=== PATIENT | female | born 1960 | race American Indian/Alaskan Native ===

== ENCOUNTER 2017-05-24 09:23 | Emergency (ER) | payer MEDICAID, OTHER ==
[2017-05-24 09:21] VITALS: BP 162/97
[2017-05-24 09:47] LABS: CHLORIDE,CL 106 mmol/L (101-111); SODIUM,NA 140 mmol/L (135-145)
--- NOTE | 2017-05-24 10:43 | CR ---
Clinical history: 57-year-old female chest pain Interpretation: Negative exam. Normal cardiac silhouette and mild ectasia dorsal aorta. No alveolar edema or dependent effusion. No lung mass, hilar lymphadenopathy or focal lobar pneumonia. No atelectasis/collapse. Aldo thorax unremarkable this AP film. No pneumothorax.
--- NOTE | 2017-05-24 10:55 | EDM.PDOC ---
ED HPI GENERAL MEDICAL PROBLEM - General Chief Complaint: Chest Pain Stated Complaint: CHEST PAIN Time Seen by Provider: 05/24/17 09:25 Source of Information: Reports: Patient History Limitations: Reports: No Limitations - History of Present Illness INITIAL COMMENTS - FREE TEXT/NARRATIVE: This 57 yo female patient was sent to the ED from the [facility] due to a 2 day history of chest pain. The patient has a history of previous cardiac stents, has been non-compliant with medications as well as non-compliant with follow-up post previous chest pain episode. The patient reports some increased shortness of breath with her chest pain. 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: Aspirin, Nitroglycerin Middle Chest Pain Score (Numeric/FACES): 2 - Related Data Allergies Allergy/AdvReac Type Severity Reaction Status Date / Time No Known Allergies Allergy Verified 05/24/17 09:27 Home Meds: Home Meds Aspirin [Halfprin] 81 mg PO DAILY 05/31/15 [History] Hydrochlorothiazide 12.5 mg PO DAILY 05/31/15 [History] Ibuprofen [Motrin] 800 mg PO Q12HR PRN 05/31/15 [History] Lisinopril 10 mg PO DAILY 05/31/15 [History] Metoprolol Tartrate [Lopressor] 05/31/15 [History] hydrOXYzine HCl [Atarax] 25 mg PO DAILY PRN 05/31/15 [History] traMADol [Ultram] 50 mg PO Q6H 05/31/15 [History] Albuterol [Proventil HFA] 6.7 gm INH Q6H PRN 05/24/17 [History] Hydrocodone/Acetaminophen [Hydrocodon-Acetaminophn 10-325] 1 tab PO BEDTIME [History] Oxymetazoline [Afrin Original 0.05% Nasal [place]] 15 ml AKILA Q12HR PRN 05/24/17 [ History] Past Medical History HEENT History: Reports: Impaired Vision, Other (See Below) Other HEENT History: wears contacts and has dentures Cardiovascular History: Reports: Angina, Hypertension, [place], Stents Respiratory History: Reports: Asthma, Bronchitis, Recurrent, SOB Gastrointestinal History: Reports: Cholelithiasis 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: Neurological History: Reports: Headaches, Chronic, Head Trauma, Migraines, Other (See Below) Other Neuro History: states fell and hit the back of her head last week and has been having more frequent headaches Psychiatric History: Reports: Anxiety, Depression Hematologic History: Reports: Blood Transfusion(s) - Infectious Disease History Infectious Disease History: Reports: Chicken Pox, Hepatitis B, Hepatitis C - Past Surgical History HEENT Surgical History: Reports: Visual Other HEENT Surgeries/Procedures: fx nose, repaired Cardiovascular Surgical History: Reports: Coronary Artery Stent GI Surgical History: Reports: Cholecystectomy Female Surgical History: Reports: Section Musculoskeletal Surgical History: Reports: Knee Replacement, Shoulder Surgery, Other (See Below) Other Musculoskeletal Surgeries/Procedures:: partial knee replacement on right knee, wears brace awaiting surgery again. right shoulder surgery and carpal tunnel surgery to right Social & Family History - Tobacco Use Smoking Status *Q: Former Smoker Used Tobacco, but Quit: Yes Month Tobacco Last Used: 1999 Second Hand Smoke Exposure: Yes - Caffeine Use Caffeine Use: Reports: None - Recreational Drug Use Recreational Drug Use: No ED ROS GENERAL - Review of Systems Review Of Systems: ROS reveals no pertinent complaints other than HPI. ED EXAM, GENERAL - Physical Exam Exam: See Below Exam Limited By: No Limitations General Appearance: Alert, WD/WN, Mild Distress Eye Exam: Bilateral Eye: EOMI, Normal Inspection, PERRL Ears: Normal External Exam, Normal Canal, Hearing Grossly Normal, Normal TMs Nose: Normal Inspection, Normal Mucosa, No Blood Throat/Mouth: Normal Inspection, Normal Lips, Normal Teeth, Normal Gums, Normal Oropharynx, Normal Voice, No Airway Compromise Head: Atraumatic, Normocephalic Neck: Normal Inspection, Supple, Non-Tender, Full Range of Motion Respiratory/Chest: No Respiratory Distress, Lungs Clear, Normal Breath Sounds, No Accessory Muscle Use, Chest Non-Tender Cardiovascular: Normal Peripheral Pulses, Regular Rate, Rhythm, No Edema, No Gallop, No JVD, No Murmur, No Rub GI/Abdominal: Normal Bowel Sounds, Soft, Non-Tender, No Organomegaly, No Distention, No Abnormal Bruit, No Mass (Female) Exam: Deferred Rectal (Female) Exam: Deferred Back Exam: Normal Inspection, Full Range of Motion, NT Extremities: Normal Inspection, Normal Range of Motion, Non-Tender, Normal Capillary Refill, No Pedal Edema Neurological: Alert, Oriented, CN II-XII Intact, Normal Cognition, Normal Gait, Normal Reflexes, No Motor/Sensory Deficits Psychiatric: Normal Affect, Normal Mood Skin Exam: Warm, Dry, Intact, Normal Color, No Rash Lymphatic: No Adenopathy Course - Vital Signs Last Recorded V/S: Last Vital Signs Temp 36.7 C 05/24/17 09:19 Pulse 82 05/24/17 09:19 Resp 20 05/24/17 09:19 BP 162/97 H 05/24/17 09:21 Pulse Ox 96 05/24/17 09:19 - Orders/Labs/Meds Orders: Active Orders 24 hr Category Date Time Status EKG Documentation Completion [RC] URGENT Care 05/24/17 09:14 Active DRUG SCREEN URINE BIORAD [URCHEM] Stat Lab 05/24/17 09:14 Uncollected UA W/MICROSCOPIC [URIN] Stat Lab 05/24/17 09:14 Uncollected Labs: Laboratory Tests 05/24/17 05/24/17 05/24/17 Range/Units 09:22 09:22 09:22 WBC 9.1 (5.0-10.0) 10^3/uL RBC 4.81 (4.2-5.4) 10^6/uL Hgb 13.2 (12.0-16.0) g/dL Hct 40.0 (37.0-47.0) % MCV 83.2 (80-100) fL MCH 27.4 (27.0-34.0) pg MCHC 33.0 (33.0-35.0) g/dL Plt Count 225 (150-450) 10^3/uL Neut % (Auto) 71.4 (42.2-75.2) % Lymph % (Auto) 18.6 L (20.5-50.1) % [place] % (Auto) 6.5 (2-8) % Eos % (Auto) 3.0 (1.0-3.0) % Baso % (Auto) 0.5 (0.0-1.0) % Sodium 140 (135-145) mmol/L Potassium 3.5 L (3.6-5.0) mmol/L Chloride 106 (101-111) mmol/L Carbon Dioxide 23.0 (21.0-31.0) mmol/L Anion Gap 14.5 BUN 13 (7-18) mg/dL Creatinine 0.7 (0.6-1.3) mg/dL Est Cr Clr Drug Dosing 68.44 mL/min Estimated GFR (MDRD) > 60 BUN/Creatinine Ratio 18.57 Glucose 108 H (74-105) mg/dL Calcium 9.5 (8.4-10.2) mg/dl Total Bilirubin 0.5 (0.2-1.0) mg/dL AST 26 (10-42) IU/L ALT 22 (10-60) IU/L Alkaline Phosphatase 107 (42-121) IU/L Troponin I < 0.02 (0.00-0.02) ng/ml B-Natriuretic Peptide 19 (0-100) pg/ml Total Protein 8.0 (6.7-8.2) g/dl Albumin 4.3 (3.2-5.5) g/dl Globulin 3.7 Albumin/Globulin Ratio 1.16 Departure - Departure Time of Disposition: 10:53 Disposition: Home, Self-Care 01 Condition: Fair Clinical Impression: Angina at rest Instructions: Angina Pectoris, [id number] Forms: ED Department Discharge Care Plan Goals: The patient was advised of the examination, lab, EKG and x-ray results during the visit. The patient was encouraged to take her medications as prescribed. The patient should follow-up with her primary care provider and her cloth calender for continued evaluation and further management. If the patient has any additional symptoms or concerns, the patient should either visit her primary care facility or return to the emergency department. - My Orders Last 24 Hours: My Active Orders 05/24/17 09:14 EKG Documentation Completion [RC] URGENT DRUG SCREEN URINE BIORAD [URCHEM] Stat UA W/MICROSCOPIC [URIN] Stat - Assessment/Plan Last 24 Hours: My Active Orders 05/24/17 09:14 EKG Documentation Completion [RC] URGENT DRUG SCREEN URINE BIORAD [URCHEM] Stat UA W/MICROSCOPIC [URIN] Stat
--- NOTE | 2017-05-29 12:53 | EKG ---
05/24/2017 - MARY JASSO - EKG done on a 57-year-old female, the one that is done at 9:15 a.m. showed sinus rhythm, heart rate of 87 beats per minute, right bundle branch block noted. [facility] /[id number]
== END 2017-05-24 11:05 | disposition home or self-care (01) ==
LOC: DL.ED 09:23
DX: I25.119 Atherosclerotic heart disease of native coronary artery with unspecified angina pectoris (principal); R06.02 Shortness of breath; I10 Essential (primary) hypertension; F41.8 Other specified anxiety disorders; Z91.14 Patient's other noncompliance with medication regimen; Z79.899 Other long term (current) drug therapy; Z91.19 Patient's noncompliance with other medical treatment and regimen; Z87.891 Personal history of nicotine dependence; Z95.5 Presence of coronary angioplasty implant and graft
CPT/HCPCS: 36415; 71010; 80053; 83880; 84484; 85025; 93005; 99285

== ENCOUNTER 2017-05-24 16:30 | Emergency (ER) | payer MEDICAID, OTHER ==
[2017-05-24 16:42] VITALS: BP 149/108
[2017-05-24 17:11] LABS: CHLORIDE,CL 105 mmol/L (101-111); SODIUM,NA 141 mmol/L (135-145)
[2017-05-24] MEDS ORDERED: LORazepam 0.5 MG Tab PO ONE (17:37)
--- NOTE | 2017-05-24 17:43 | EDM.PDOC ---
ED HPI GENERAL MEDICAL PROBLEM - General Chief Complaint: Chest Pain Stated Complaint: CHEST PAIN. SOB Time Seen by Provider: 05/24/17 17:15 Source of Information: Reports: Patient History Limitations: Reports: No Limitations - History of Present Illness INITIAL COMMENTS - FREE TEXT/NARRATIVE: This 57 yo female patient reports to the ED with chest pain and increased shortness of breath. The patient reports she was in an argument with her spouse prior to her symptoms starting today. The patient reports she was staying at her son's house last night and noticed some glass pipes and white substances in the house. The patient was seen in the ED for similar symptoms this morning and had a negative cardiac evaluation. The patient denies any drug or ETOH use. Onset: Today, Sudden Duration: Minutes:, Constant Location: Reports: Chest Quality: Reports: Ache, Sharp Severity: Moderate Improves with: Reports: Rest Worsens with: Reports: None Associated Symptoms: Reports: Chest Pain, Shortness of Breath Chest Pain Score (Numeric/FACES): 8 - Related Data Allergies Allergy/AdvReac Type Severity Reaction Status Date / Time No Known Allergies Allergy Verified 05/24/17 16:37 Home Meds: Home Meds Aspirin [Halfprin] 81 mg PO DAILY 05/31/15 [History] Hydrochlorothiazide 12.5 mg PO DAILY 05/31/15 [History] Ibuprofen [Motrin] 800 mg PO Q12HR PRN 05/31/15 [History] Lisinopril 10 mg PO DAILY 05/31/15 [History] Metoprolol Tartrate [Lopressor] 25 mg PO DAILY 05/31/15 [History] hydrOXYzine HCl [Atarax] 25 mg PO DAILY PRN 05/31/15 [History] traMADol [Ultram] 50 mg PO Q6H 05/31/15 [History] Albuterol [Proventil HFA] 6.7 gm INH Q6H PRN 05/24/17 [History] Hydrocodone/Acetaminophen [Hydrocodon-Acetaminophn 10-325] 1 tab PO BEDTIME [History] Oxymetazoline [Afrin Original 0.05% Nasal [place]] 15 ml AKILA Q12HR PRN 05/24/17 [ History] Past Medical History HEENT History: Reports: Impaired Vision, Other (See Below) Other HEENT History: wears contacts and has dentures Cardiovascular History: Reports: Angina, Hypertension, [place], Stents Respiratory History: Reports: Asthma, Bronchitis, Recurrent, SOB Gastrointestinal History: Reports: Cholelithiasis 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: Neurological History: Reports: Headaches, Chronic, Head Trauma, Migraines, Other (See Below) Other Neuro History: states fell and hit the back of her head last week and has been having more frequent headaches Psychiatric History: Reports: Anxiety, Depression Hematologic History: Reports: Blood Transfusion(s) - Infectious Disease History Infectious Disease History: Reports: Chicken Pox, Hepatitis B, Hepatitis C - Past Surgical History HEENT Surgical History: Reports: Visual Other HEENT Surgeries/Procedures: fx nose, repaired Cardiovascular Surgical History: Reports: Coronary Artery Stent GI Surgical History: Reports: Cholecystectomy Female Surgical History: Reports: Section Musculoskeletal Surgical History: Reports: Knee Replacement, Shoulder Surgery, Other (See Below) Other Musculoskeletal Surgeries/Procedures:: partial knee replacement on right knee, wears brace awaiting surgery again. right shoulder surgery and carpal tunnel surgery to right Social & Family History - Family History Family Medical History: Noncontributory - Tobacco Use Smoking Status *Q: Former Smoker Used Tobacco, but Quit: Yes Month Tobacco Last Used: ? Second Hand Smoke Exposure: Yes - Caffeine Use Caffeine Use: Reports: Coffee, Soda - Recreational Drug Use Recreational Drug Use: No ED ROS GENERAL - Review of Systems Review Of Systems: ROS reveals no pertinent complaints other than HPI. ED EXAM, GENERAL - Physical Exam Exam: See Below Exam Limited By: No Limitations General Appearance: Alert, WD/WN, Anxious, Moderate Distress, Thin Eye Exam: Bilateral Eye: EOMI, Normal Inspection, PERRL Ears: Normal External Exam, Normal Canal, Hearing Grossly Normal, Normal TMs Nose: Normal Inspection, Normal Mucosa, No Blood Throat/Mouth: Normal Inspection, Normal Lips, Normal Teeth, Normal Gums, Normal Oropharynx, Normal Voice, No Airway Compromise Head: Atraumatic, Normocephalic Neck: Normal Inspection, Supple, Non-Tender, Full Range of Motion Respiratory/Chest: No Respiratory Distress, Lungs Clear, Normal Breath Sounds, No Accessory Muscle Use, Chest Non-Tender Cardiovascular: Normal Peripheral Pulses, Regular Rate, Rhythm, No Edema, No Gallop, No JVD, No Murmur, No Rub GI/Abdominal: Normal Bowel Sounds, Soft, Non-Tender, No Organomegaly, No Distention, No Abnormal Bruit, No Mass (Female) Exam: Deferred Rectal (Female) Exam: Deferred Back Exam: Normal Inspection, Full Range of Motion, NT Extremities: Normal Inspection, Normal Range of Motion, Non-Tender, Normal Capillary Refill, No Pedal Edema Neurological: Alert, Oriented, CN II-XII Intact, Normal Cognition, Normal Gait, Normal Reflexes, No Motor/Sensory Deficits Psychiatric: Normal Affect, Normal Mood Skin Exam: Warm, Dry, Intact, Normal Color, No Rash Lymphatic: No Adenopathy Course - Vital Signs Last Recorded V/S: Last Vital Signs Temp 37.0 C 05/24/17 16:39 Pulse 92 05/24/17 16:39 Resp 20 05/24/17 16:39 BP 149/108 H 05/24/17 16:39 Pulse Ox 100 05/24/17 16:39 - Orders/Labs/Meds Orders: Active Orders 24 hr Category Date Time Status EKG Documentation Completion [RC] URGENT Care 05/24/17 16:38 Active Chest 1V Frontal [CR] Urgent Exams 05/24/17 16:38 Taken Labs: Laboratory Tests 05/24/17 05/24/17 05/24/17 Range/Units 16:45 16:45 16:50 WBC 11.7 H (5.0-10.0) 10^3/uL RBC 5.06 (4.2-5.4) 10^6/uL Hgb 13.7 (12.0-16.0) g/dL Hct 41.5 (37.0-47.0) % MCV 82.0 (80-100) fL MCH 27.1 (27.0-34.0) pg MCHC 33.0 (33.0-35.0) g/dL Plt Count 237 (150-450) 10^3/uL Neut % (Auto) 76.3 H (42.2-75.2) % Lymph % (Auto) 16.8 L (20.5-50.1) % [place] % (Auto) 5.0 (2-8) % Eos % (Auto) 1.6 (1.0-3.0) % Baso % (Auto) 0.3 (0.0-1.0) % Sodium 141 (135-145) mmol/L Potassium 3.8 (3.6-5.0) mmol/L Chloride 105 (101-111) mmol/L Carbon Dioxide 23.0 (21.0-31.0) mmol/L Anion Gap 16.8 BUN 17 (7-18) mg/dL Creatinine 0.8 (0.6-1.3) mg/dL Est Cr Clr Drug Dosing TNP Estimated GFR (MDRD) > 60 BUN/Creatinine Ratio 21.25 Glucose 89 (74-105) mg/dL Calcium 10.0 (8.4-10.2) mg/dl Total Bilirubin 0.7 (0.2-1.0) mg/dL AST 28 (10-42) IU/L ALT 23 (10-60) IU/L Alkaline Phosphatase 112 (42-121) IU/L Troponin I < 0.02 (0.00-0.02) ng/ml B-Natriuretic Peptide 23 (0-100) pg/ml Total Protein 8.4 H (6.7-8.2) g/dl Albumin 4.5 (3.2-5.5) g/dl Globulin 3.9 Albumin/Globulin Ratio 1.15 Urine Color (YELLOW) Urine Appearance (CLEAR) Urine pH (5.0-9.0) Ur Specific [place] (1.005-1.030) Urine Protein (NEGATIVE) Urine Glucose (UA) (NEGATIVE) Urine Ketones (NEGATIVE) Urine Occult Blood (NEGATIVE) Urine Nitrite (NEGATIVE) Urine Bilirubin (NEGATIVE) Urine Urobilinogen (0.2-1.0) mg/dL Ur Leukocyte Esterase (NEGATIVE) Urine RBC /HPF Urine WBC (0-5/HPF) /HPF Ur Epithelial Cells /HPF Amorphous Sediment (0/HPF) /HPF Urine Bacteria (0-FEW/HPF) /HPF Urine Mucus /LPF Urine Opiates Screen Negative (NEGATIVE) Ur Oxycodone Screen Negative (NEGATIVE) Urine Methadone Screen Negative (NEGATIVE) Ur Barbiturates Screen Negative (NEGATIVE) U Tricyclic Antidepress Negative (NEGATIVE) Ur Phencyclidine Scrn Negative (NEGATIVE) Ur Amphetamine Screen Positive H (NEGATIVE) U Methamphetamines Scrn Positive H (NEGATIVE) Urine MDMA Screen Negative (NEGATIVE) U Benzodiazepines Scrn Negative (NEGATIVE) Urine Cocaine Screen Negative (NEGATIVE) U Marijuana (THC) Screen Positive H (NEGATIVE) 05/24/17 Range/Units 16:50 WBC (5.0-10.0) 10^3/uL RBC (4.2-5.4) 10^6/uL Hgb (12.0-16.0) g/dL Hct (37.0-47.0) % MCV (80-100) fL MCH (27.0-34.0) pg MCHC (33.0-35.0) g/dL Plt Count (150-450) 10^3/uL Neut % (Auto) (42.2-75.2) % Lymph % (Auto) (20.5-50.1) % [place] % (Auto) (2-8) % Eos % (Auto) (1.0-3.0) % Baso % (Auto) (0.0-1.0) % Sodium (135-145) mmol/L Potassium (3.6-5.0) mmol/L Chloride (101-111) mmol/L Carbon Dioxide (21.0-31.0) mmol/L Anion Gap BUN (7-18) mg/dL Creatinine (0.6-1.3) mg/dL Est Cr Clr Drug Dosing Estimated GFR (MDRD) BUN/Creatinine Ratio Glucose (74-105) mg/dL Calcium (8.4-10.2) mg/dl Total Bilirubin (0.2-1.0) mg/dL AST (10-42) IU/L ALT (10-60) IU/L Alkaline Phosphatase (42-121) IU/L Troponin I (0.00-0.02) ng/ml B-Natriuretic Peptide (0-100) pg/ml Total Protein (6.7-8.2) g/dl Albumin (3.2-5.5) g/dl Globulin Albumin/Globulin Ratio Urine Color Yellow (YELLOW) Urine Appearance Turbid (CLEAR) Urine pH 6.5 (5.0-9.0) Ur Specific [place] 1.020 (1.005-1.030) Urine Protein Trace H (NEGATIVE) Urine Glucose (UA) Negative (NEGATIVE) Urine Ketones 15 H (NEGATIVE) Urine Occult Blood Negative (NEGATIVE) Urine Nitrite Negative (NEGATIVE) Urine Bilirubin Negative (NEGATIVE) Urine Urobilinogen 2.0 H (0.2-1.0) mg/dL Ur Leukocyte Esterase Negative (NEGATIVE) Urine RBC 0-5 /HPF Urine WBC 0-5 (0-5/HPF) /HPF Ur Epithelial Cells Many H /HPF Amorphous Sediment Many H (0/HPF) /HPF Urine Bacteria Rare (0-FEW/HPF) /HPF Urine Mucus Few H /LPF Urine Opiates Screen (NEGATIVE) Ur Oxycodone Screen (NEGATIVE) Urine Methadone Screen (NEGATIVE) Ur Barbiturates Screen (NEGATIVE) U Tricyclic Antidepress (NEGATIVE) Ur Phencyclidine Scrn (NEGATIVE) Ur Amphetamine Screen (NEGATIVE) U Methamphetamines Scrn (NEGATIVE) Urine MDMA Screen (NEGATIVE) U Benzodiazepines Scrn (NEGATIVE) Urine Cocaine Screen (NEGATIVE) U Marijuana (THC) Screen (NEGATIVE) Meds: Medications Discontinued Medications Generic Name Dose Route Start Last Admin Trade Name Pablo PRN Reason Stop Dose Admin Lorazepam 0.5 mg 05/24/17 17:37 Ativan PO 05/24/17 17:38 ONETIME ONE Departure - Departure Time of Disposition: 17:43 Disposition: Home, Self-Care 01 Condition: Fair Clinical Impression: Anxiety, Angina at rest, Methamphetamine use Instructions: Nonspecific Chest Pain, [id number], Panic Attacks, [id number] , Stimulant Use Disorder-Methamphetamines Forms: ED Department Discharge Care Plan Goals: The patient was advised of the examination, lab, EKG and chest x-ray results during the visit. The patient was advised to avoid methamphetamines. The patient was given a dose of Ativan (0.5 mg) while in the ED. The patient was discharged with a script for Ativan (0.5 mg) #10 to take 1 by mouth every 6 hours for anxiety. If the patient has any additional symptoms or concerns, the patient should follow-up with her primary care facility or return to the emergency department. - My Orders Last 24 Hours: My Active Orders 05/24/17 16:38 EKG Documentation Completion [RC] URGENT Chest 1V Frontal [CR] Urgent - Assessment/Plan Last 24 Hours: My Active Orders 05/24/17 16:38 EKG Documentation Completion [RC] URGENT Chest 1V Frontal [CR] Urgent
--- NOTE | 2017-05-29 12:50 | EKG ---
05/24/2017 - MARY JASSO - An EKG done on a 57-year-old female at 1653 hours showed sinus rhythm and heart rate of 90 beats per minute. PVCs noted with right bundle-branch block. [facility] /[id number]
== END 2017-05-24 17:49 | disposition home or self-care (01) ==
LOC: DL.ED 16:30
DX: I25.119 Atherosclerotic heart disease of native coronary artery with unspecified angina pectoris (principal); F15.90 Other stimulant use, unspecified, uncomplicated; I10 Essential (primary) hypertension; F41.8 Other specified anxiety disorders; Z87.891 Personal history of nicotine dependence; Z79.899 Other long term (current) drug therapy; Z95.5 Presence of coronary angioplasty implant and graft; R06.02 Shortness of breath; Z91.14 Patient's other noncompliance with medication regimen; Z91.19 Patient's noncompliance with other medical treatment and regimen
CPT/HCPCS: 36415; 71010; 80053; 80305; 81001; 83880; 84484; 85025; 93005; 99285; A9270

== ENCOUNTER 2020-09-02 14:38 | Inpatient (IN) | payer MEDICAID, OTHER ==
--- NOTE | 2020-09-02 15:07 | EDM.PDOC ---
ED HPI GENERAL MEDICAL PROBLEM - General Stated Complaint: AMBULANCE Time Seen by Provider: 09/02/20 15:47 Source of Information: Reports: Patient, RN, RN Notes Reviewed History Limitations: Reports: No Limitations - History of Present Illness INITIAL COMMENTS - FREE TEXT/NARRATIVE: Patient presents to the ED via EMS from [facility]. The patient states she tested positive for COVID on August 25. She states she has experienced headache, shortness of breath, chest pain, cough, and sore throat since her diagnosis; she reports one fever of 100.8 two days ago and denies shaking chills. She denies palpitations, nausea, vomiting, diarrhea, or muscle aches. She presents today as she feels as though her shortness of breath is worsening. She noted her woke her last night and told her that she was "...cough really hard in her sleep" and was worried she was going to stop breathing. She has not taken any medications for these problems. She denies tobacco, alcohol, or recreational drug use. Generalized Pain Score (Numeric/FACES): 4 - Related Data Allergies Allergy/AdvReac Type Severity Reaction Status Date / Time naproxen [From Naprosyn] AdvReac Nausea Verified 09/02/20 23:15 Home Meds: Home Meds Aspirin [Halfprin] 81 mg PO DAILY 05/31/15 [History] Ibuprofen [Motrin] 800 mg PO Q12HR PRN 05/31/15 [History] Lisinopril 10 mg PO DAILY 05/31/15 [History] Metoprolol Tartrate [Lopressor] 25 mg PO DAILY 05/31/15 [History] hydrOXYzine HCL [Atarax] 25 mg PO DAILY PRN 05/31/15 [History] hydroCHLOROthiazide [Hydrochlorothiazide] 12.5 mg PO DAILY 05/31/15 [History] Albuterol [Proventil HFA] 6.7 gm INH Q6H PRN 05/24/17 [History] Hydrocodone/Acetaminophen [Hydrocodone-Acetamin 10-325 mg] 1 tab PO BEDTIME 05/24/17 [History] Oxymetazoline [Afrin Original 0.05% Nasal [place]] 15 ml AKILA Q12HR PRN 05/24/17 [History] Past Medical History HEENT History: Reports: Impaired Vision, Other (See Below) Other HEENT History: wears contacts and has dentures Cardiovascular History: Reports: Angina, Hypertension, [place], Stents Respiratory History: Reports: Asthma, Bronchitis, Recurrent, SOB Gastrointestinal History: Reports: Cholelithiasis [employer] History: Reports: Neurological History: Reports: Headaches, Chronic, Head Trauma, Migraines, Other (See Below) Other Neuro History: states fell and hit the back of her head last week and has been having more frequent headaches Psychiatric History: Reports: Anxiety, Depression Hematologic History: Reports: Blood Transfusion(s) - Infectious Disease History Infectious Disease History: Reports: Chicken Pox, Hepatitis B, Hepatitis C - Past Surgical History HEENT Surgical History: Reports: Visual Other HEENT Surgeries/Procedures: fx nose, repaired Cardiovascular Surgical History: Reports: Coronary Artery Stent GI Surgical History: Reports: Cholecystectomy Female Surgical History: Reports: Section Musculoskeletal Surgical History: Reports: Knee Replacement, Shoulder Surgery, Other (See Below) Other Musculoskeletal Surgeries/Procedures:: partial knee replacement on right knee, wears brace awaiting surgery again. right shoulder surgery and carpal tunnel surgery to right Social & Family History - Family History Family Medical History: Noncontributory - Caffeine Use Caffeine Use: Reports: Coffee, Soda ED ROS GENERAL - Review of Systems Review Of Systems: Comprehensive ROS is negative, except as noted in HPI. ED EXAM, GENERAL - Physical Exam Exam: See Below Exam Limited By: No Limitations General Appearance: Alert, WD/WN, Mild Distress Eye Exam: Bilateral Eye: EOMI, Normal Inspection, PERRL Nose: Normal Inspection, Nasal Tenderness, Clear Rhinorrhea Throat/Mouth: Normal Voice, No Airway Compromise, Inflammation. No: Normal Lips (Dry mucous membranes), Normal Oropharynx (Dry mucous membranes) Neck: Normal Inspection, Supple, Non-Tender, Full Range of Motion, Lymphadenopathy (R). No: Lymphadenopathy (L) Respiratory/Chest: Crackles (To bilateral lower lobes), Wheezing (Inpiratory to bilateral upper lobes), Accessory Muscle Use. No: Chest Non-Tender (Tenderness "from coughing") Cardiovascular: Normal Peripheral Pulses, Regular Rate, Rhythm, No Edema, No Gallop, No JVD, No Murmur, No Rub Peripheral Pulses: 1+: Radial (L), Radial (R), Dorsalis Pedis (L), Dorsalis Pedis (R) GI/Abdominal: Normal Bowel Sounds, Soft, Non-Tender, No Distention, No Mass, Pelvis Stable Back Exam: Normal Inspection, Full Range of Motion Extremities: Normal Inspection, Normal Range of Motion, Non-Tender, No Pedal Edema, Normal Capillary Refill Neurological: Alert, Oriented, CN II-XII Intact, Normal Cognition, No Motor/Sensory Deficits Skin Exam: Warm, Dry, Intact, Normal Color, No Rash. No: Ecchymosis, Erythema, Mottled, Pallor, Petechiae, Rash #1 Interpretation EKG Date: 09/02/20 Time: 15:04 Rhythm: NSR Rate (Beats/Min): 89 Strum: LAD-Left Strum Deviation P-Wave: Present QRS: RBBB ST-T: Normal QT: Normal Comparison: No Change (NSR; RBBB; LAD) Course - Vital Signs Last Recorded V/S: Last Vital Signs Temp 97.3 F 09/03/20 00:14 Pulse 99 09/03/20 00:14 Resp 20 09/03/20 00:14 BP 143/108 H 09/03/20 00:14 Pulse Ox 94 L 09/03/20 00:14 - Orders/Labs/Meds Orders: Active Orders 24 hr Category Date Time Status EKG Documentation Completion [RC] STAT Care 09/02/20 14:58 Active Medication Orders Acetaminophen (Tylenol) 650 mg PO Q4H PRN PRN Reason: Fever Greater Than 101 Last Admin: 09/02/20 19:54 Dose: 650 mg Documented by: BABITA Hydrocodone Bitart/Acetaminophen ([place] 325-10 Mg) 1 tab PO Q6H PRN PRN Reason: moderate pain Last Admin: 09/03/20 00:16 Dose: 1 tab Documented by: BABITA Albuterol (Proventil Hfa) 0 gm INH Q4H PRN PRN Reason: Shortness of Breath Aspirin (Halfprin) 81 mg PO DAILY [facility] Benzocaine/Menthol (Cepacol Sore Throat) 1 lozenge MUCMEM Q2H PRN PRN Reason: Sore Throat Last Admin: 09/03/20 01:26 Dose: 1 lozenge Documented by: Admin: 09/02/20 21:35 Dose: 1 lozenge Documented by: BABITA Cholecalciferol (Vitamin D3) 25 mcg PO DAILY [facility] Dexamethasone (Dexamethasone) 6 mg PO DAILY [facility] Stop: 09/12/20 09:01 Docusate Sodium (Colace) 100 mg PO BID PRN PRN Reason: Constipation Enoxaparin Sodium (Lovenox) 40 mg SUBCUT DAILY [facility] Hydrochlorothiazide (Hydrochlorothiazide) 12.5 mg PO DAILY [facility] Hydroxyzine HCl (Atarax) 25 mg PO .QHS PRN PRN Reason: Sleep Last Admin: 09/03/20 00:16 Dose: 25 mg Documented by: BABITA Remdesivir 100 mg/ Sodium (Chloride) 230 mls @ 230 mls/hr IV Q24H [facility] Stop: 09/06/20 19:59 Ibuprofen (Motrin) 800 mg PO Q12HR PRN PRN Reason: Pain Lisinopril (Prinivil) 10 mg PO DAILY [facility] Metoprolol Tartrate (Lopressor) 25 mg PO DAILY [facility] Mometasone Furoate/Formoterol Fumar (Dulera 200-5 Mcg) 2 puff IH BIDRT [facility] Morphine Sulfate (Morphine) 1 mg IVPUSH Q4H PRN PRN Reason: Pain (severe 7-10) Multivitamins/Minerals (Vitamins And Minerals) 1 tab PO WITHBREAKFAST [facility] Ondansetron HCl (Zofran Odt) 4 mg PO Q6H PRN PRN Reason: nausea, able to take PO Ondansetron HCl (Zofran) 4 mg IVPUSH Q6H PRN PRN Reason: Nausea/Vomiting Sodium Chloride (Saline Flush) 10 ml FLUSH ASDIRECTED PRN PRN Reason: Keep Vein Open Labs: Laboratory Tests 09/02/20 09/02/20 09/02/20 Range/Units 15:29 15:29 15:29 WBC 7.5 (5.0-10.0) 10^3/uL RBC 5.14 (4.2-5.4) 10^6/uL Hgb 12.3 (12.0-16.0) g/dL Hct 37.8 (37.0-47.0) % MCV 73.5 L D (80-100) fL MCH 23.9 L (27.0-34.0) pg MCHC 32.5 L (33.0-35.0) g/dL Plt Count 176 (150-450) 10^3/uL Neut % (Auto) 74.7 (42.2-75.2) % Lymph % (Auto) 13.5 L (20.5-50.1) % [place] % (Auto) 8.8 H (2-8) % Eos % (Auto) 2.7 (1.0-3.0) % Baso % (Auto) 0.1 (0.0-1.0) % Add Manual Diff Yes Neutrophils % (Manual) 73 (42-75) % Lymphocytes % (Manual) 16 L (20-50) % Monocytes % (Manual) 8 (2-8) % Eosinophils % (Manual) 3 (1-3) % D-Dimer, Quantitative 492 H (0-400) ng/mL Sodium 140 (136-145) mmol/L Potassium 4.6 (3.5-5.1) mmol/L Chloride 104 (98-107) mmol/L Carbon Dioxide 25 (21-32) mmol/L Anion Gap 15.6 H (7-13) mEq/L BUN 17 (7-18) mg/dL Creatinine 0.68 (0.55-1.02) mg/dL Est Cr Clr Drug Dosing TNP Estimated GFR (MDRD) > 60 BUN/Creatinine Ratio 25.0 (No establ ref range) Glucose 100 H (74-99) mg/dL Lactic Acid (0.4-2.0) mmol/L Calcium 9.0 (8.5-10.1) mg/dL Phosphorus 3.2 (2.6-4.7) mg/dL Magnesium 2.2 (1.8-2.4) mg/dL Total Bilirubin 0.7 (0.2-1.0) mg/dL AST 61 H (15-37) U/L ALT 28 (14-59) U/L Alkaline Phosphatase 103 (46-116) U/L Troponin I < 0.017 (0.000-0.056) ng/mL C-Reactive Protein 6.4 H (0.0-0.9) mg/dL B-Natriuretic Peptide 6 (0-100) pg/ml Total Protein 8.5 H (6.4-8.2) g/dL Albumin 3.1 L (3.4-5.0) g/dL Globulin 5.4 Albumin/Globulin Ratio 0.57 Blood Type 11/05/20 11/05/20 Range/Units 15:29 15:29 WBC (5.0-10.0) 10^3/uL RBC (4.2-5.4) 10^6/uL Hgb (12.0-16.0) g/dL Hct (37.0-47.0) % MCV (80-100) fL MCH (27.0-34.0) pg MCHC (33.0-35.0) g/dL Plt Count (150-450) 10^3/uL Neut % (Auto) (42.2-75.2) % Lymph % (Auto) (20.5-50.1) % [place] % (Auto) (2-8) % Eos % (Auto) (1.0-3.0) % Baso % (Auto) (0.0-1.0) % Add Manual Diff Neutrophils % (Manual) (42-75) % Lymphocytes % (Manual) (20-50) % Monocytes % (Manual) (2-8) % Eosinophils % (Manual) (1-3) % D-Dimer, Quantitative (0-400) ng/mL Sodium (136-145) mmol/L Potassium (3.5-5.1) mmol/L Chloride (98-107) mmol/L Carbon Dioxide (21-32) mmol/L Anion Gap (7-13) mEq/L BUN (7-18) mg/dL Creatinine (0.55-1.02) mg/dL Est Cr Clr Drug Dosing Estimated GFR (MDRD) BUN/Creatinine Ratio (No establ ref range) Glucose (74-99) mg/dL Lactic Acid 1.1 (0.4-2.0) mmol/L Calcium (8.5-10.1) mg/dL Phosphorus (2.6-4.7) mg/dL Magnesium (1.8-2.4) mg/dL Total Bilirubin (0.2-1.0) mg/dL AST (15-37) U/L ALT (14-59) U/L Alkaline Phosphatase (46-116) U/L Troponin I (0.000-0.056) ng/mL C-Reactive Protein (0.0-0.9) mg/dL B-Natriuretic Peptide (0-100) pg/ml Total Protein (6.4-8.2) g/dL Albumin (3.4-5.0) g/dL Globulin Albumin/Globulin Ratio Blood Type O POSITIVE Meds: Medications Generic Name Dose Route Start Last Admin Trade Name Freq PRN Reason Stop Dose Admin Acetaminophen 650 mg 09/02/20 19:06 09/02/20 19:54 Tylenol PO 650 mg Q4H PRN Administration Fever Greater Than 101 Hydrocodone Bitart/Acetaminophen 1 tab 09/02/20 19:09 09/03/20 00:16 [place] 325-10 Mg PO 1 tab Q6H PRN Administration moderate pain Albuterol 0 gm 09/02/20 19:09 Proventil Hfa INH Q4H PRN Shortness of Breath Aspirin 81 mg 09/03/20 09:00 Halfprin PO DAILY [facility] Benzocaine/Menthol 1 lozenge 09/02/20 19:28 09/03/20 01:26 Cepacol Sore Throat MUCMEM 1 lozenge Q2H PRN Administration Sore Throat Cholecalciferol 25 mcg 09/03/20 09:00 Vitamin D3 PO DAILY [facility] Dexamethasone 6 mg 09/03/20 09:00 Dexamethasone PO 09/12/20 09:01 DAILY [facility] Docusate Sodium 100 mg 09/02/20 19:12 Colace PO BID PRN Constipation Enoxaparin Sodium 40 mg 09/03/20 09:00 Lovenox SUBCUT DAILY [facility] Hydrochlorothiazide 12.5 mg 09/03/20 09:00 Hydrochlorothiazide PO DAILY [facility] Hydroxyzine HCl 25 mg 09/02/20 19:09 09/03/20 00:16 Atarax PO 25 mg .QHS PRN Administration Sleep Remdesivir 100 mg/ Sodium 230 mls @ 230 mls/hr 09/03/20 19:00 Chloride IV 09/06/20 19:59 Q24H [facility] Ibuprofen 800 mg 09/02/20 19:09 Motrin PO Q12HR PRN Pain Lisinopril 10 mg 09/03/20 09:00 Prinivil PO DAILY [facility] Metoprolol Tartrate 25 mg 09/03/20 09:00 Lopressor PO DAILY [facility] Mometasone Furoate/Formoterol Fumar 2 puff 09/03/20 07:00 Dulera 200-5 Mcg IH BIDRT [facility] Morphine Sulfate 1 mg 09/02/20 19:12 Morphine IVPUSH Q4H PRN Pain (severe 7-10) Multivitamins/Minerals 1 tab 09/03/20 08:00 Vitamins And Minerals PO WITHBREAKFAST [facility] Ondansetron HCl 4 mg 09/02/20 19:12 Zofran Odt PO Q6H PRN nausea, able to take PO Ondansetron HCl 4 mg 09/02/20 19:12 Zofran IVPUSH Q6H PRN Nausea/Vomiting Sodium Chloride 10 ml 09/02/20 19:12 Saline Flush FLUSH ASDIRECTED PRN Keep Vein Open Discontinued Medications Generic Name Dose Route Start Last Admin Trade Name Freq PRN Reason Stop Dose Admin Amlodipine Besylate 5 mg 09/02/20 22:30 09/02/20 22:31 Norvasc PO 09/02/20 22:31 5 mg ONETIME ONE Administration Dexamethasone 6 mg 09/02/20 16:45 09/02/20 17:00 Decadron IVPUSH 09/02/20 16:46 6 mg ONETIME ONE Administration Remdesivir 200 mg/ Sodium 210 mls @ 210 mls/hr 09/02/20 19:06 09/02/20 23:08 Chloride IV 09/02/20 19:07 Infused ONETIME ONE Infusion Sterile Water Confirm 09/02/20 19:33 09/02/20 19:54 Sterile Water For Injection Administered 09/02/20 19:34 Not Given Dose 40 mls @ as directed .[facility] Interpretation Free Text/Narrative:: [facility] [place] [facility] Final Radiology Report Call: [phone] assistance Online chat: [email or web address] Name: MARY JASSO Age: 60Years F Date: 09/02/2020 SSN: -- : 1960 Study: CR CHEST 1V FRONTAL Requesting Physician: Wanda Payne Images: 1 Addl Studies: Provided Clinical History: Shortness of breath; COVID + Contrast: Contrast Medium: Contrast Amount: Contrast Method: CONFIDENTIALITY STATEMENT This report is intended only for use by the referring physician, and only in accordance with law. If you received this in error, call [phone]. Page 1 of 1 PROCEDURE INFORMATION: Exam: XR Chest, 1 View Exam date and time: 09/02/2020 4:52 PM Age: 60 years old Clinical indication: Shortness of breath; Additional info: Shortness of breath; Covid + TECHNIQUE: Imaging protocol: XR of the chest Views: 1 view. COMPARISON: CR Chest 1V Frontal 05/24/2017 5:15 PM FINDINGS: Lungs: Extensive multifocal but predominantly peripheral ground-glass and more consolidative lung opacities throughout the mid and lower lungs. Pleural space: Unremarkable. No pleural effusion. No pneumothorax. Heart/Mediastinum: Borderline cardiomegaly. Bones/joints: Unremarkable. IMPRESSION: Bilateral multifocal pneumonia with an appearance that is typical for COVID infection. Thank you for allowing us to participate in the care of your patient. Dictated and Authenticated by: José Miguel Peralta MD 09/02/2020 5:15 PM Central Time ([place] & [place]) - Re-Assessments/Exams Free Text/Narrative Re-Assessment/Exam: D-dimer unremarkable. Chest film confirms bilateral COVID pneumonia. Patient requiring 2L of O2 via NC to maintain appropriate saturations. Discussed case with Dr. Nolan, he is in agreement with accept patient for inpatient admission. Departure - Departure Time of Disposition: 17:25 Disposition: Admitted As Inpatient 64 Condition: Good Clinical Impression: Pneumonia due to COVID-19 virus, Hypoxia - My Orders Last 24 Hours: My Active Orders 09/02/20 14:58 EKG Documentation Completion [RC] STAT - Assessment/Plan Last 24 Hours: My Active Orders 09/02/20 14:58 EKG Documentation Completion [RC] STAT
[2020-09-02 16:01] LABS: ANION GAP 15.6 mEq/L (7-13); CHLORIDE,CL 104 mmol/L (98-107); SODIUM,NA 140 mmol/L (136-145)
[2020-09-02] MEDS ORDERED: Dexamethasone 4 MG/ML SDV IVPUSH ONE (16:45)
--- NOTE | 2020-09-02 17:15 | CR ---
PROCEDURE INFORMATION: Exam: XR Chest, 1 View Exam date and time: 09/02/2020 4:52 PM Age: 60 years old Clinical indication: Shortness of breath; Additional info: Shortness of breath; Covid + TECHNIQUE: Imaging protocol: XR of the chest Views: 1 view. COMPARISON: CR Chest 1V Frontal 05/24/2017 5:15 PM FINDINGS: Lungs: Extensive multifocal but predominantly peripheral ground-glass and more consolidative lung opacities throughout the mid and lower lungs. Pleural space: Unremarkable. No pleural effusion. No pneumothorax. Heart/Mediastinum: Borderline cardiomegaly. Bones/joints: Unremarkable. IMPRESSION: Bilateral multifocal pneumonia with an appearance that is typical for COVID infection.
[2020-09-02] MEDS ORDERED: Acetaminophen 325 MG Tab PO PRN (19:06)
[2020-09-02] MEDS ORDERED: Ibuprofen 400 MG Tab PO PRN (19:09)
[2020-09-02] MEDS ORDERED: hydrOXYzine HCl 25 MG Tab PO PRN (19:09)
[2020-09-02] MEDS ORDERED: Albuterol 6.7 GM Inhaler INH PRN (19:09)
[2020-09-02] MEDS ORDERED: Morphine 2 MG/ML SYRINGE IVPUSH PRN (19:12)
[2020-09-02] MEDS ORDERED: Ondansetron 4 MG/2 ML SDV IVPUSH PRN (19:12)
[2020-09-02] MEDS ORDERED: Ondansetron 4 MG Tab.DIS PO PRN (19:12)
[2020-09-02] MEDS ORDERED: Docusate Sodium 100 MG Cap PO PRN (19:12)
--- NOTE | 2020-09-02 19:18 | PCM.HP ---
H&P History of Present Illness - General Date of Service: 09/02/20 Admit Problem/Dx: Admission Diagnosis/Problem Admission Diagnosis/Problem Pneumonia Source of Information: Patient - History of Present Illness Initial Comments - Free Text/Narative: 60-year-old lady with a history of coronary artery disease, hypertension, COPD. Developed sore throat, cough, fever, Sore throat, shortness of breath 22 of August. tested positive for to Covid 19 infection on 25 August. she continued to have shortness of breath. She was noted to have low oxygen saturation on room air in the emergency room - Related Data Allergies/Adverse Reactions: Allergies Allergy/AdvReac Type Severity Reaction Status Date / Time No Known Allergies Allergy Verified 09/02/20 18:29 Home Medications: Home Meds Aspirin [Halfprin] 81 mg PO DAILY 05/31/15 [History] Ibuprofen [Motrin] 800 mg PO Q12HR PRN 05/31/15 [History] Lisinopril 10 mg PO DAILY 05/31/15 [History] Metoprolol Tartrate [Lopressor] 25 mg PO DAILY 05/31/15 [History] hydrOXYzine HCL [Atarax] 25 mg PO DAILY PRN 05/31/15 [History] hydroCHLOROthiazide [Hydrochlorothiazide] 12.5 mg PO DAILY 05/31/15 [History] Albuterol [Proventil HFA] 6.7 gm INH Q6H PRN 05/24/17 [History] Hydrocodone/Acetaminophen [Hydrocodone-Acetamin 10-325 mg] 1 tab PO BEDTIME 05/24/17 [History] Oxymetazoline [Afrin Original 0.05% Nasal [place]] 15 ml AKILA Q12HR PRN 05/24/17 [History] Past Medical History HEENT History: Reports: Impaired Vision, Other (See Below) Other HEENT History: wears contacts and has dentures Cardiovascular History: Reports: Angina, Hypertension, [place], Stents Respiratory History: Reports: Asthma, Bronchitis, Recurrent, SOB Gastrointestinal History: Reports: Cholelithiasis HEAD OF PRECISION TARGETING History: Reports: Neurological History: Reports: Headaches, Chronic, Head Trauma, Migraines, Other (See Below) Other Neuro History: states fell and hit the back of her head last week and has been having more frequent headaches Psychiatric History: Reports: Anxiety, Depression Hematologic History: Reports: Blood Transfusion(s) - Infectious Disease History Infectious Disease History: Reports: Chicken Pox, Hepatitis B, Hepatitis C - Past Surgical History HEENT Surgical History: Reports: Visual Other HEENT Surgeries/Procedures: fx nose, repaired Cardiovascular Surgical History: Reports: Coronary Artery Stent GI Surgical History: Reports: Cholecystectomy Female Surgical History: Reports: Section Musculoskeletal Surgical History: Reports: Knee Replacement, Shoulder Surgery, Other (See Below) Other Musculoskeletal Surgeries/Procedures:: partial knee replacement on right knee, wears brace awaiting surgery again. right shoulder surgery and carpal tunnel surgery to right Social & Family History - Family History Family Medical History: Noncontributory - Tobacco Use Tobacco Use Status *Q: Never Tobacco User - Caffeine Use Caffeine Use: Reports: Coffee, Soda - Recreational Drug Use Recreational Drug Use: No H&P Review of Systems - Review of Systems: Review Of Systems: See Below General: Reports: Fever, Chills Pulmonary: Reports: Shortness of Breath, Cough. Denies: Wheezing, Sputum Cardiovascular: Reports: Dyspnea on Exertion. Denies: Edema Gastrointestinal: Denies: Abdominal Pain Exam - Exam Exam: See Below - Vital Signs Vital Signs: Last Vital Signs Temp 98.4 F 09/02/20 18:29 Pulse 2 L 09/02/20 18:29 Resp 28 H 09/02/20 18:29 BP 150/72 H 09/02/20 18:29 Pulse Ox 95 09/02/20 18:29 Weight: 177 lb 1.6 oz - Exam Quality Assessment: Supplemental Oxygen General: Alert, Oriented Neck: Supple Lungs: Normal Respiratory Effort, Decreased Breath Sounds Cardiovascular: Regular Rate, Regular Rhythm GI/Abdominal Exam: Normal Bowel Sounds, Soft, Non-Tender Extremities: No Pedal Edema Skin: Warm, Dry Neuro Extensive - Mental Status: Alert, Oriented x3, Normal Mood/Affect - Patient Data Lab Results Last 24 hrs: Laboratory Results - last 24 hr 09/02/20 09/02/20 09/02/20 Range/Units 15:29 15:29 15:29 WBC 7.5 (5.0-10.0) 10^3/uL RBC 5.14 (4.2-5.4) 10^6/uL Hgb 12.3 (12.0-16.0) g/dL Hct 37.8 (37.0-47.0) % MCV 73.5 L D (80-100) fL MCH 23.9 L (27.0-34.0) pg MCHC 32.5 L (33.0-35.0) g/dL Plt Count 176 (150-450) 10^3/uL Neut % (Auto) 74.7 (42.2-75.2) % Lymph % (Auto) 13.5 L (20.5-50.1) % Ward % (Auto) 8.8 H (2-8) % Eos % (Auto) 2.7 (1.0-3.0) % Baso % (Auto) 0.1 (0.0-1.0) % Add Manual Diff Yes Neutrophils % (Manual) 73 (42-75) % Lymphocytes % (Manual) 16 L (20-50) % Monocytes % (Manual) 8 (2-8) % Eosinophils % (Manual) 3 (1-3) % D-Dimer, Quantitative 492 H (0-400) ng/mL Sodium 140 (136-145) mmol/L Potassium 4.6 (3.5-5.1) mmol/L Chloride 104 (98-107) mmol/L Carbon Dioxide 25 (21-32) mmol/L Anion Gap 15.6 H (7-13) mEq/L BUN 17 (7-18) mg/dL Creatinine 0.68 (0.55-1.02) mg/dL Est Cr Clr Drug Dosing TNP Estimated GFR (MDRD) > 60 BUN/Creatinine Ratio 25.0 (No establ ref range) Glucose 100 H (74-99) mg/dL Lactic Acid (0.4-2.0) mmol/L Calcium 9.0 (8.5-10.1) mg/dL Phosphorus 3.2 (2.6-4.7) mg/dL Magnesium 2.2 (1.8-2.4) mg/dL Total Bilirubin 0.7 (0.2-1.0) mg/dL AST 61 H (15-37) U/L ALT 28 (14-59) U/L Alkaline Phosphatase 103 (46-116) U/L Troponin I < 0.017 (0.000-0.056) ng/mL C-Reactive Protein 6.4 H (0.0-0.9) mg/dL B-Natriuretic Peptide 6 (0-100) pg/ml Total Protein 8.5 H (6.4-8.2) g/dL Albumin 3.1 L (3.4-5.0) g/dL Globulin 5.4 Albumin/Globulin Ratio 0.57 09/02/20 Range/Units 15:29 WBC (5.0-10.0) 10^3/uL RBC (4.2-5.4) 10^6/uL Hgb (12.0-16.0) g/dL Hct (37.0-47.0) % MCV (80-100) fL MCH (27.0-34.0) pg MCHC (33.0-35.0) g/dL Plt Count (150-450) 10^3/uL Neut % (Auto) (42.2-75.2) % Lymph % (Auto) (20.5-50.1) % Ward % (Auto) (2-8) % Eos % (Auto) (1.0-3.0) % Baso % (Auto) (0.0-1.0) % Add Manual Diff Neutrophils % (Manual) (42-75) % Lymphocytes % (Manual) (20-50) % Monocytes % (Manual) (2-8) % Eosinophils % (Manual) (1-3) % D-Dimer, Quantitative (0-400) ng/mL Sodium (136-145) mmol/L Potassium (3.5-5.1) mmol/L Chloride (98-107) mmol/L Carbon Dioxide (21-32) mmol/L Anion Gap (7-13) mEq/L BUN (7-18) mg/dL Creatinine (0.55-1.02) mg/dL Est Cr Clr Drug Dosing Estimated GFR (MDRD) BUN/Creatinine Ratio (No establ ref range) Glucose (74-99) mg/dL Lactic Acid 1.1 (0.4-2.0) mmol/L Calcium (8.5-10.1) mg/dL Phosphorus (2.6-4.7) mg/dL Magnesium (1.8-2.4) mg/dL Total Bilirubin (0.2-1.0) mg/dL AST (15-37) U/L ALT (14-59) U/L Alkaline Phosphatase (46-116) U/L Troponin I (0.000-0.056) ng/mL C-Reactive Protein (0.0-0.9) mg/dL B-Natriuretic Peptide (0-100) pg/ml Total Protein (6.4-8.2) g/dL Albumin (3.4-5.0) g/dL Globulin Albumin/Globulin Ratio Result Diagrams: 09/02/20 15:29 09/02/20 15:29 - Problem List (1) CAD (coronary artery disease) SNOMED Code(s): 20426908 ICD Code: I25.10 - ATHSCL HEART DISEASE OF [place] CORONARY ARTERY W/O ANG PCTRS Status: Acute Current Visit: Yes (2) HTN (hypertension) SNOMED Code(s): 09188316 ICD Code: I10 - ESSENTIAL (PRIMARY) HYPERTENSION Status: Acute Current Visit: Yes (3) Anxiety SNOMED Code(s): 27588884 ICD Code: F41.9 - ANXIETY DISORDER, UNSPECIFIED Status: Acute Current Visit: No (4) Pneumonia due to COVID-19 virus SNOMED Code(s): 197695716429707889 ICD Code: U07.1 - COVID-19; J12.89 - OTHER VIRAL PNEUMONIA Status: Acute Current Visit: No Problem List Initiated/Reviewed/Updated: Yes Orders Last 24hrs: Active Orders 24 hr Category Date Time Status Admission Diagnosis [ADT] Stat ADT 09/02/20 17:26 Ordered Admission Status [Patient Status] [ADT] Routine ADT 09/02/20 17:26 Active Antiembolic Devices [RC] PER UNIT ROUTINE Care 09/02/20 19:13 Ordered Cardiac Monitoring [RC] . DIRECTED Care 09/02/20 17:26 Active EKG Documentation Completion [RC] STAT Care 09/02/20 14:58 Active Nurse Communication: Isolation [RC] ASDIRECTED Care 09/02/20 19:08 Ordered Oxygen Therapy [RC] PRN Care 09/02/20 19:12 Ordered Peripheral IV Care [RC] . DIRECTED Care 09/02/20 19:13 Ordered RT Post Treatment Assessment [RC] Click to Edit Care 09/02/20 19:12 Ordered RT Pre-Treatment Assessment [RC] Click to Edit Care 09/02/20 19:12 Ordered Up With Assistance [RC] ASDIRECTED Care 09/02/20 19:12 Ordered VTE/DVT Education [RC] PER UNIT ROUTINE Care 09/02/20 19:12 Ordered Verify Patient Consent Obtain [RC] ASDIRECTED Care 09/02/20 19:06 Ordered Vital Signs [RC] Q4H Care 09/02/20 19:12 Ordered Regular Diet [DIET] Diet 09/02/20 Breakfast Ordered ABO/RH TYPE [BBK] Routine Lab 09/02/20 19:06 Ordered BASIC METABOLIC PANEL,BMP [CHEM] AM Lab 09/03/20 05:11 Ordered BASIC METABOLIC PANEL,BMP [CHEM] AM Lab 09/04/20 05:11 Ordered BASIC METABOLIC PANEL,BMP [CHEM] AM Lab 09/05/20 05:11 Ordered BASIC METABOLIC PANEL,BMP [CHEM] AM Lab 09/06/20 05:11 Ordered BASIC METABOLIC PANEL,BMP [CHEM] AM Lab 09/07/20 05:11 Ordered CBC WITH AUTO DIFF [HEME] AM Lab 09/03/20 05:11 Ordered CBC WITH AUTO DIFF [HEME] AM Lab 09/04/20 05:11 Ordered CBC WITH AUTO DIFF [HEME] AM Lab 09/05/20 05:11 Ordered CBC WITH AUTO DIFF [HEME] AM Lab 09/06/20 05:11 Ordered CBC WITH AUTO DIFF [HEME] AM Lab 09/07/20 05:11 Ordered CULTURE BLOOD [BC] Stat Lab 09/02/20 19:08 Ordered CULTURE SPUTUM + SMEAR [RM] Routine Lab 09/02/20 19:08 Ordered D-DIMER QUANTITATIVE [COAG] AM Lab 09/03/20 05:11 Ordered D-DIMER QUANTITATIVE [COAG] AM Lab 09/04/20 05:11 Ordered D-DIMER QUANTITATIVE [COAG] AM Lab 09/05/20 05:11 Ordered D-DIMER QUANTITATIVE [COAG] AM Lab 09/06/20 05:11 Ordered D-DIMER QUANTITATIVE [COAG] AM Lab 09/07/20 05:11 Ordered FERRITIN [CHEM] AM Lab 09/03/20 05:11 Ordered FERRITIN [CHEM] AM Lab 09/04/20 05:11 Ordered FERRITIN [CHEM] AM Lab 09/05/20 05:11 Ordered FERRITIN [CHEM] AM Lab 09/06/20 05:11 Ordered FERRITIN [CHEM] AM Lab 09/07/20 05:11 Ordered FRESH FROZEN PLASMA [BBK] Routine Lab 09/02/20 19:06 Ordered HEPATIC FUNCTION PANEL,HFP [CHEM] AM Lab 09/03/20 05:11 Ordered HEPATIC FUNCTION PANEL,HFP [CHEM] AM Lab 09/04/20 05:11 Ordered HEPATIC FUNCTION PANEL,HFP [CHEM] AM Lab 09/05/20 05:11 Ordered HEPATIC FUNCTION PANEL,HFP [CHEM] AM Lab 09/06/20 05:11 Ordered HEPATIC FUNCTION PANEL,HFP [CHEM] AM Lab 09/07/20 05:11 Ordered MAGNESIUM [CHEM] AM Lab 09/03/20 05:11 Ordered PHOSPHORUS [CHEM] AM Lab 09/03/20 05:11 Ordered PROCALCITONIN [REF] AM Lab 09/03/20 05:11 Ordered PROCALCITONIN [REF] AM Lab 09/04/20 05:11 Ordered PROCALCITONIN [REF] AM Lab 09/05/20 05:11 Ordered PROCALCITONIN [REF] AM Lab 09/06/20 05:11 Ordered PROCALCITONIN [REF] AM Lab 09/07/20 05:11 Ordered Acetaminophen [TylenoL] Med 09/02/20 19:06 Ordered 650 mg PO Q4H PRN Acetaminophen/HYDROcodone [[place] 325-10 MG] Med 09/02/20 19:09 Ordered 1 tab PO Q6H PRN Albuterol [Proventil HFA] Med 09/02/20 19:09 Ordered 6.7 gm INH Q4H PRN Aspirin [Halfprin] Med 09/03/20 09:00 Ordered 81 mg PO DAILY Cholecalciferol (Vitamin D3) [Vitamin D3] Med 09/03/20 09:00 Ordered 25 mcg PO DAILY Docusate Sodium [Colace] Med 09/02/20 19:12 Ordered 100 mg PO BID PRN Enoxaparin [Lovenox] Med 09/03/20 09:00 Ordered 40 mg SUBCUT DAILY Ibuprofen [Motrin] Med 09/02/20 19:09 Ordered 800 mg PO Q12HR PRN Metoprolol Tartrate [Lopressor] Med 09/03/20 09:00 Ordered 25 mg PO DAILY Mometasone/Formoterol [Dulera 200-5 MCG] Med 09/03/20 07:00 Ordered 2 puff IH BIDRT Morphine Med 09/02/20 19:12 Ordered 1 mg IVPUSH Q4H PRN Multivitamins/Minerals [Vitamins and Minerals] Med 09/03/20 08:00 Ordered 1 tab PO WITHBREAKFAST Ondansetron [Zofran ODT] Med 09/02/20 19:12 Ordered 4 mg PO Q6H PRN Ondansetron [Zofran] Med 09/02/20 19:12 Ordered 4 mg IVPUSH Q6H PRN Remdesivir (Eua) [Remdesivir (EUA)] 100 mg Med 09/03/20 09:00 Ordered Sodium Chloride 0.9% [Normal Saline] 230 ml IV Q24H Remdesivir (Eua) [Remdesivir (EUA)] 200 mg Med 09/02/20 19:06 Ordered Sodium Chloride 0.9% [Normal Saline] 210 ml IV ONETIME Sodium Chloride 0.9% [Saline Flush] Med 09/02/20 19:12 Ordered 10 ml FLUSH ASDIRECTED PRN dexAMETHasone Med 09/03/20 09:00 Ordered 6 mg PO DAILY hydrOXYzine HCL [Atarax] Med 09/02/20 19:09 Ordered 25 mg PO .QHS PRN hydroCHLOROthiazide Med 09/03/20 09:00 Ordered 12.5 mg PO DAILY lisinopriL [Prinivil] Med 09/03/20 09:00 Ordered 10 mg PO DAILY Antiembolic Hose [OM.PC] Per Unit Routine Oth 09/02/20 19:13 Ordered Isolation [COMM] Stat Oth 09/02/20 19:06 Ordered Peripheral IV Insertion Adult [OM.PC] Routine Oth 09/02/20 19:12 Ordered Saline Lock Insert [OM.PC] Routine Oth 09/02/20 19:12 Ordered Transfuse Fresh Frozen Plasma [COMM] Routine Oth 09/02/20 19:06 Ordered Resuscitation Status Routine Resus Stat 09/02/20 19:12 Ordered Medication Orders Acetaminophen (Tylenol) 650 mg PO Q4H PRN PRN Reason: Fever Greater Than 101 Hydrocodone Bitart/Acetaminophen ([place] 325-10 Mg) 1 tab PO Q6H PRN PRN Reason: moderate pain Albuterol (Proventil Hfa) 6.7 gm INH Q4H PRN PRN Reason: Shortness of Breath Aspirin (Halfprin) 81 mg PO DAILY [facility] Dexamethasone (Dexamethasone) 6 mg PO DAILY [facility] Stop: 09/12/20 09:01 Docusate Sodium (Colace) 100 mg PO BID PRN PRN Reason: Constipation Enoxaparin Sodium (Lovenox) 40 mg SUBCUT DAILY [facility] Hydrochlorothiazide (Hydrochlorothiazide) 12.5 mg PO DAILY [facility] Hydroxyzine HCl (Atarax) 25 mg PO .QHS PRN PRN Reason: Sleep Remdesivir 200 mg/ Sodium (Chloride) 210 mls @ 210 mls/hr IV ONETIME ONE Stop: 09/02/20 19:07 Remdesivir 100 mg/ Sodium (Chloride) 230 mls @ 230 mls/hr IV Q24H [facility] Stop: 09/06/20 09:01 Ibuprofen (Motrin) 800 mg PO Q12HR PRN PRN Reason: Pain Lisinopril (Prinivil) 10 mg PO DAILY [facility] Metoprolol Tartrate (Lopressor) 25 mg PO DAILY [facility] Mometasone Furoate/Formoterol Fumar (Dulera 200-5 Mcg) 2 puff IH BIDRT [facility] Morphine Sulfate (Morphine) 1 mg IVPUSH Q4H PRN PRN Reason: Pain (severe 7-10) Ondansetron HCl (Zofran Odt) 4 mg PO Q6H PRN PRN Reason: nausea, able to take PO Ondansetron HCl (Zofran) 4 mg IVPUSH Q6H PRN PRN Reason: Nausea/Vomiting Sodium Chloride (Saline Flush) 10 ml FLUSH ASDIRECTED PRN PRN Reason: Keep Vein Open Assessment/Plan Comment:: 60-year-old with a history of cad, copd Presented with increasing shortness of breath. Acute hypoxemic respiratory failure secondary to Covid 19 pneumonia Oxygen sats were high 80s in ER on RA Supplement oxygen as needed Covid 19 pneumonia Comorbidities: copd, cad symptoms started 08/22 with fever, cough, shortness of breath, headache, sore throat Positive covid 19 screen on 08/25 CXR abnormal 09/02 associated with hypoxemia 09/02 in er treat with Remdesivir: yes 09/02- LFT, Renal fx. Is good Dexamethasone 09/02- Plasma: yes ordered 09/02- evaluate for concurrent bacterial infections Follow pro-calcitonin levels In the meantime hold Abx Ddimer is low - DVT prophylaxis SQ Lovenox daily COPD with acute exacerbation Start dexamethasone 09/02- Use inhalers Start dulera scheduled Albuterol as needed Hypertension Continue Lisinopril, hctz and metoprolol Coronary artery disease Continue aspirin, metoprolol
[2020-09-02] MEDS ORDERED: Water For Injection, Sterile 40 ML ONE (19:33)
[2020-09-02] MEDS: Benzocaine/Cetylpyridinium/Menthol Lozenge MUCMEM PRN (21:35)
[2020-09-02] MEDS ORDERED: amLODIPine 5 MG Tab PO ONE (22:30)
[2020-09-03] MEDS: Acetaminophen/HYDROcodone 325-10 MG Tab PO PRN ×3 (00:16→20:57)
[2020-09-03] MEDS: Benzocaine/Cetylpyridinium/Menthol Lozenge MUCMEM PRN ×4 (01:26→20:56)
[2020-09-03 07:33] LABS: ANION GAP 12.3 mEq/L (7-13); CHLORIDE,CL 105 mmol/L (98-107); SODIUM,NA 139 mmol/L (136-145)
[2020-09-03] MEDS: Hydrochlorothiazide 25 MG Tab PO SCH (08:11)
[2020-09-03] MEDS: Cholecalciferol (Vitamin D3) 25 MCG Tab PO SCH (08:11)
[2020-09-03] MEDS: Lisinopril 10 MG Tab PO SCH (08:11)
[2020-09-03] MEDS: Multivitamins, Therapeutic with Minerals Tab PO SCH (08:12)
[2020-09-03] MEDS: Metoprolol Tartrate 25 MG Tab PO SCH (08:13)
[2020-09-03] MEDS: Dexamethasone 2 MG Tab PO SCH (08:14)
[2020-09-03] MEDS: Aspirin 81 MG Tab.EC PO SCH (08:15)
[2020-09-03] MEDS: Enoxaparin 40 MG/0.4 ML Syringe SUBCUT SCH (08:16)
[2020-09-03] MEDS: Formoterol/Mometasone 200-5 MCG 8.8 GM Inhaler IH SCH ×3 (08:35→17:07)
[2020-09-03] MEDS: guaiFENesin/Dextromethorphan 100-10 MG/5 ML Soln 5 ML Cup PO PRN ×3 (10:43→20:56)
--- NOTE | 2020-09-03 13:25 | PCM.PN ---
- General Info Date of Service: 09/03/20 (3) Admission Dx/Problem (Free Text): Admission Diagnosis/Problem Admission Diagnosis/Problem Pneumonia Subjective Update: feeling well On oxygen supplement shortness is improved since admission no abdominal pain or diarrhea Still has a sore throat and decreased voice strength Functional Status: Reports: Tolerating Diet - Review of Systems General: Reports: Fatigue Cardiovascular: Denies: Chest Pain, Edema Psychiatric: Denies: Confusion - Patient Data Vitals - Most Recent: Last Vital Signs Temp 98.0 F 09/03/20 07:46 Pulse 83 09/03/20 08:13 Resp 18 09/03/20 07:46 BP 153/87 H 09/03/20 08:13 Pulse Ox 98 09/03/20 07:46 Weight - Most Recent: 177 lb 1.6 oz I&O - Last 24 Hours: Intake & Output 09/02/20 09/03/20 09/03/20 22:59 06:59 14:59 Intake Total 154 35 Balance 154 35 Lab Results Last 24 Hours: Laboratory Results - last 24 hr 09/02/20 09/02/20 09/02/20 Range/Units 15:29 15:29 15:29 WBC 7.5 (5.0-10.0) 10^3/uL RBC 5.14 (4.2-5.4) 10^6/uL Hgb 12.3 (12.0-16.0) g/dL Hct 37.8 (37.0-47.0) % MCV 73.5 L D (80-100) fL MCH 23.9 L (27.0-34.0) pg MCHC 32.5 L (33.0-35.0) g/dL Plt Count 176 (150-450) 10^3/uL Neut % (Auto) 74.7 (42.2-75.2) % Lymph % (Auto) 13.5 L (20.5-50.1) % [place] % (Auto) 8.8 H (2-8) % Eos % (Auto) 2.7 (1.0-3.0) % Baso % (Auto) 0.1 (0.0-1.0) % Add Manual Diff Yes Neutrophils % (Manual) 73 (42-75) % Lymphocytes % (Manual) 16 L (20-50) % Monocytes % (Manual) 8 (2-8) % Eosinophils % (Manual) 3 (1-3) % D-Dimer, Quantitative 492 H (0-400) ng/mL Sodium 140 (136-145) mmol/L Potassium 4.6 (3.5-5.1) mmol/L Chloride 104 (98-107) mmol/L Carbon Dioxide 25 (21-32) mmol/L Anion Gap 15.6 H (7-13) mEq/L BUN 17 (7-18) mg/dL Creatinine 0.68 (0.55-1.02) mg/dL Est Cr Clr Drug Dosing TNP Estimated GFR (MDRD) > 60 BUN/Creatinine Ratio 25.0 (No establ ref range) Glucose 100 H (74-99) mg/dL Lactic Acid (0.4-2.0) mmol/L Calcium 9.0 (8.5-10.1) mg/dL Phosphorus 3.2 (2.6-4.7) mg/dL Magnesium 2.2 (1.8-2.4) mg/dL Ferritin (8-252) mg/mL Total Bilirubin 0.7 (0.2-1.0) mg/dL Direct Bilirubin (0.0-0.2) mg/dL Indirect Bilirubin AST 61 H (15-37) U/L ALT 28 (14-59) U/L Alkaline Phosphatase 103 (46-116) U/L Troponin I < 0.017 (0.000-0.056) ng/mL C-Reactive Protein 6.4 H (0.0-0.9) mg/dL B-Natriuretic Peptide 6 (0-100) pg/ml Total Protein 8.5 H (6.4-8.2) g/dL Albumin 3.1 L (3.4-5.0) g/dL Globulin 5.4 Albumin/Globulin Ratio 0.57 Blood Type 09/02/20 09/02/20 09/03/20 Range/Units 15:29 15:29 06:58 WBC 4.7 L (5.0-10.0) 10^3/uL RBC 4.93 (4.2-5.4) 10^6/uL Hgb 11.6 L (12.0-16.0) g/dL Hct 36.5 L (37.0-47.0) % MCV 74.0 L (80-100) fL MCH 23.5 L (27.0-34.0) pg MCHC 31.8 L (33.0-35.0) g/dL Plt Count 277 D (150-450) 10^3/uL Neut % (Auto) 82.3 H (42.2-75.2) % Lymph % (Auto) 13.2 L (20.5-50.1) % [place] % (Auto) 4.5 (2-8) % Eos % (Auto) 0.0 L (1.0-3.0) % Baso % (Auto) 0.0 (0.0-1.0) % Add Manual Diff Neutrophils % (Manual) (42-75) % Lymphocytes % (Manual) (20-50) % Monocytes % (Manual) (2-8) % Eosinophils % (Manual) (1-3) % D-Dimer, Quantitative (0-400) ng/mL Sodium (136-145) mmol/L Potassium (3.5-5.1) mmol/L Chloride (98-107) mmol/L Carbon Dioxide (21-32) mmol/L Anion Gap (7-13) mEq/L BUN (7-18) mg/dL Creatinine (0.55-1.02) mg/dL Est Cr Clr Drug Dosing Estimated GFR (MDRD) BUN/Creatinine Ratio (No establ ref range) Glucose (74-99) mg/dL Lactic Acid 1.1 (0.4-2.0) mmol/L Calcium (8.5-10.1) mg/dL Phosphorus (2.6-4.7) mg/dL Magnesium (1.8-2.4) mg/dL Ferritin (8-252) mg/mL Total Bilirubin (0.2-1.0) mg/dL Direct Bilirubin (0.0-0.2) mg/dL Indirect Bilirubin AST (15-37) U/L ALT (14-59) U/L Alkaline Phosphatase (46-116) U/L Troponin I (0.000-0.056) ng/mL C-Reactive Protein (0.0-0.9) mg/dL B-Natriuretic Peptide (0-100) pg/ml Total Protein (6.4-8.2) g/dL Albumin (3.4-5.0) g/dL Globulin Albumin/Globulin Ratio Blood Type O POSITIVE 09/03/20 09/03/20 09/03/20 Range/Units 06:58 06:58 06:58 WBC (5.0-10.0) 10^3/uL RBC (4.2-5.4) 10^6/uL Hgb (12.0-16.0) g/dL Hct (37.0-47.0) % MCV (80-100) fL MCH (27.0-34.0) pg MCHC (33.0-35.0) g/dL Plt Count (150-450) 10^3/uL Neut % (Auto) (42.2-75.2) % Lymph % (Auto) (20.5-50.1) % [place] % (Auto) (2-8) % Eos % (Auto) (1.0-3.0) % Baso % (Auto) (0.0-1.0) % Add Manual Diff Neutrophils % (Manual) (42-75) % Lymphocytes % (Manual) (20-50) % Monocytes % (Manual) (2-8) % Eosinophils % (Manual) (1-3) % D-Dimer, Quantitative 350 (0-400) ng/mL Sodium 139 (136-145) mmol/L Potassium 4.3 (3.5-5.1) mmol/L Chloride 105 (98-107) mmol/L Carbon Dioxide 26 (21-32) mmol/L Anion Gap 12.3 (7-13) mEq/L BUN 17 (7-18) mg/dL Creatinine 0.62 (0.55-1.02) mg/dL Est Cr Clr Drug Dosing 67.58 Estimated GFR (MDRD) > 60 BUN/Creatinine Ratio (No establ ref range) Glucose 122 H (74-99) mg/dL Lactic Acid (0.4-2.0) mmol/L Calcium 8.6 (8.5-10.1) mg/dL Phosphorus 3.5 (2.6-4.7) mg/dL Magnesium 2.3 (1.8-2.4) mg/dL Ferritin 72 (8-252) mg/mL Total Bilirubin 0.4 (0.2-1.0) mg/dL Direct Bilirubin 0.1 (0.0-0.2) mg/dL Indirect Bilirubin 0.3 AST 39 H (15-37) U/L ALT 29 (14-59) U/L Alkaline Phosphatase 102 (46-116) U/L Troponin I (0.000-0.056) ng/mL C-Reactive Protein (0.0-0.9) mg/dL B-Natriuretic Peptide (0-100) pg/ml Total Protein 7.9 (6.4-8.2) g/dL Albumin 2.9 L (3.4-5.0) g/dL Globulin 5.0 Albumin/Globulin Ratio 0.58 Blood Type [place] Results Last 24 Hours: Microbiology 09/03/20 01:20 Gram Stain - Final Sputum - Expectorated Med Orders - Current: Current Medications Acetaminophen (Tylenol) 650 mg PO Q4H PRN PRN Reason: Fever Greater Than 101 Last Admin: 09/02/20 19:54 Dose: 650 mg Documented by: Hydrocodone Bitart/Acetaminophen ([place] 325-10 Mg) 1 tab PO Q6H PRN PRN Reason: moderate pain Last Admin: 09/03/20 00:16 Dose: 1 tab Documented by: Albuterol (Proventil Hfa) 0 gm INH Q4H PRN PRN Reason: Shortness of Breath Aspirin (Halfprin) 81 mg PO DAILY [facility] Last Admin: 09/03/20 08:15 Dose: 81 mg Documented by: Benzocaine/Menthol (Cepacol Sore Throat) 1 lozenge MUCMEM Q2H PRN PRN Reason: Sore Throat Last Admin: 09/03/20 10:43 Dose: 1 lozenge Documented by: Cholecalciferol (Vitamin D3) 25 mcg PO DAILY [facility] Last Admin: 09/03/20 08:11 Dose: 25 mcg Documented by: Dexamethasone (Dexamethasone) 6 mg PO DAILY [facility] Stop: 09/12/20 09:01 Last Admin: 09/03/20 08:14 Dose: 6 mg Documented by: Docusate Sodium (Colace) 100 mg PO BID PRN PRN Reason: Constipation Enoxaparin Sodium (Lovenox) 40 mg SUBCUT DAILY [facility] Last Admin: 09/03/20 08:16 Dose: 40 mg Documented by: Guaifenesin/Phenylephrine HCl (Robitussin Dm) 10 ml PO Q6H PRN PRN Reason: Cough Last Admin: 09/03/20 10:43 Dose: 10 ml Documented by: Hydrochlorothiazide (Hydrochlorothiazide) 12.5 mg PO DAILY [facility] Last Admin: 09/03/20 08:11 Dose: 12.5 mg Documented by: Hydroxyzine HCl (Atarax) 25 mg PO .QHS PRN PRN Reason: Sleep Last Admin: 09/03/20 00:16 Dose: 25 mg Documented by: Remdesivir 100 mg/ Sodium (Chloride) 230 mls @ 230 mls/hr IV Q24H [facility] Stop: 09/06/20 19:59 Ibuprofen (Motrin) 800 mg PO Q12HR PRN PRN Reason: Pain Lisinopril (Prinivil) 10 mg PO DAILY [facility] Last Admin: 09/03/20 08:11 Dose: 10 mg Documented by: Metoprolol Tartrate (Lopressor) 25 mg PO DAILY [facility] Last Admin: 09/03/20 08:13 Dose: 25 mg Documented by: Mometasone Furoate/Formoterol Fumar (Dulera 200-5 Mcg) 2 puff IH BIDRT [facility] Last Admin: 09/03/20 08:35 Dose: 1 dose Documented by: Morphine Sulfate (Morphine) 1 mg IVPUSH Q4H PRN PRN Reason: Pain (severe 7-10) Multivitamins/Minerals (Vitamins And Minerals) 1 tab PO WITHBREAKFAST [facility] Last Admin: 09/03/20 08:12 Dose: 1 tab Documented by: Ondansetron HCl (Zofran Odt) 4 mg PO Q6H PRN PRN Reason: nausea, able to take PO Ondansetron HCl (Zofran) 4 mg IVPUSH Q6H PRN PRN Reason: Nausea/Vomiting Sodium Chloride (Saline Flush) 10 ml FLUSH ASDIRECTED PRN PRN Reason: Keep Vein Open Discontinued Medications Amlodipine Besylate (Norvasc) 5 mg PO ONETIME ONE Stop: 09/02/20 22:31 Last Admin: 09/02/20 22:31 Dose: 5 mg Documented by: Dexamethasone (Decadron) 6 mg IVPUSH ONETIME ONE Stop: 09/02/20 16:46 Last Admin: 09/02/20 17:00 Dose: 6 mg Documented by: Remdesivir 200 mg/ Sodium (Chloride) 210 mls @ 210 mls/hr IV ONETIME ONE Stop: 09/02/20 19:07 Last Infusion: 09/02/20 23:08 Dose: Infused Documented by: Sterile Water (Sterile Water For Injection) Confirm Administered Dose 40 mls @ as directed .ROUTE .STK-MED ONE Stop: 09/02/20 19:34 Last Admin: 09/02/20 19:54 Dose: Not Given Documented by: - Exam Quality Assessment: Supplemental Oxygen General: Alert, Oriented Neck: Supple Lungs: Normal Respiratory Effort, Decreased Breath Sounds, Rhonchi Cardiovascular: Regular Rhythm GI/Abdominal Exam: Normal Bowel Sounds, Soft, Non-Tender Extremities: No Pedal Edema Neurological: No New Focal Deficit Psy/Mental Status: Alert, Normal Affect Sepsis Event Note - Evaluation Sepsis Screening Result: No Definite Risk - Focused Exam Vital Signs: Vital Signs Temp Pulse Pulse Resp BP BP Pulse Ox 09/03/20 08:13 83 153/87 H 09/03/20 08:11 153/87 H 09/03/20 07:46 98.0 F 95 18 153/77 H 98 - Problem List & Annotations (1) CAD (coronary artery disease) SNOMED Code(s): 22392925 Code(s): I25.10 - ATHSCL HEART DISEASE OF [place] CORONARY ARTERY W/O ANG PCTRS Status: Acute Current Visit: Yes (2) HTN (hypertension) SNOMED Code(s): 77489708 Code(s): I10 - ESSENTIAL (PRIMARY) HYPERTENSION Status: Acute Current Visit: Yes (3) Anxiety SNOMED Code(s): 27965940 Code(s): F41.9 - ANXIETY DISORDER, UNSPECIFIED Status: Acute Current Visit: No (4) Pneumonia due to COVID-19 virus SNOMED Code(s): 732491591457099220 Code(s): U07.1 - COVID-19; J12.89 - OTHER VIRAL PNEUMONIA Status: Acute Current Visit: No - Problem List Review Problem List Initiated/Reviewed/Updated: Yes - My Orders Last 24 Hours: My Active Orders 09/02/20 15:29 ABO/RH TYPE [BBK] Routine CULTURE BLOOD [BC] Stat FRESH FROZEN PLASMA [BBK] Routine 09/02/20 19:06 Verify Patient Consent Obtain [RC] ASDIRECTED Acetaminophen [TylenoL] 650 mg PO Q4H PRN Isolation [COMM] Stat Transfuse Fresh Frozen Plasma [COMM] Routine 09/02/20 19:09 Acetaminophen/HYDROcodone [[place] 325-10 MG] 1 tab PO Q6H PRN Albuterol [Proventil HFA] 0 gm INH Q4H PRN Ibuprofen [Motrin] 800 mg PO Q12HR PRN hydrOXYzine HCL [Atarax] 25 mg PO .QHS PRN 09/02/20 19:12 Oxygen Therapy [RC] PRN RT Post Treatment Assessment [RC] Click to Edit RT Pre-Treatment Assessment [RC] Click to Edit Up With Assistance [RC] ASDIRECTED VTE/DVT Education [RC] PER UNIT ROUTINE Vital Signs [RC] Q4HR Docusate Sodium [Colace] 100 mg PO BID PRN Morphine 1 mg IVPUSH Q4H PRN Ondansetron [Zofran ODT] 4 mg PO Q6H PRN Ondansetron [Zofran] 4 mg IVPUSH Q6H PRN Sodium Chloride 0.9% [Saline Flush] 10 ml FLUSH ASDIRECTED PRN Peripheral IV Insertion Adult [OM.PC] Routine Saline Lock Insert [OM.PC] Routine Resuscitation Status Routine 09/02/20 19:13 Antiembolic Devices [RC] PER UNIT ROUTINE Peripheral IV Care [RC] 08,20 Antiembolic Hose [OM.PC] Per Unit Routine 09/02/20 19:28 Benzocaine/Cetylpyrd/Menthol [Cepacol Sore Throat] 1 lozenge MUCMEM Q2H PRN 09/03/20 01:20 CULTURE SPUTUM + SMEAR [RM] Routine 09/03/20 06:58 PROCALCITONIN [REF] AM 09/03/20 07:00 Mometasone/Formoterol [Dulera 200-5 MCG] 2 puff IH BIDRT 09/03/20 08:00 Multivitamins/Minerals [Vitamins and Minerals] 1 tab PO WITHBREAKFAST 09/03/20 09:00 Aspirin [Halfprin] 81 mg PO DAILY Cholecalciferol (Vitamin D3) [Vitamin D3] 25 mcg PO DAILY Enoxaparin [Lovenox] 40 mg SUBCUT DAILY Metoprolol Tartrate [Lopressor] 25 mg PO DAILY dexAMETHasone 6 mg PO DAILY hydroCHLOROthiazide 12.5 mg PO DAILY lisinopriL [Prinivil] 10 mg PO DAILY 09/03/20 09:46 Dextromethorphan/guaiFENesin [Robitussin DM] 10 ml PO Q6H PRN 09/03/20 19:00 Remdesivir (Eua) [Remdesivir (EUA)] 100 mg Sodium Chloride 0.9% [Normal Saline] 230 ml IV Q24H 09/04/20 05:11 BASIC METABOLIC PANEL,BMP [CHEM] AM CBC WITH AUTO DIFF [HEME] AM D-DIMER QUANTITATIVE [COAG] AM FERRITIN [CHEM] AM HEPATIC FUNCTION PANEL,HFP [CHEM] AM PROCALCITONIN [REF] AM 09/05/20 05:11 BASIC METABOLIC PANEL,BMP [CHEM] AM CBC WITH AUTO DIFF [HEME] AM D-DIMER QUANTITATIVE [COAG] AM FERRITIN [CHEM] AM HEPATIC FUNCTION PANEL,HFP [CHEM] AM PROCALCITONIN [REF] AM 09/06/20 05:11 BASIC METABOLIC PANEL,BMP [CHEM] AM CBC WITH AUTO DIFF [HEME] AM D-DIMER QUANTITATIVE [COAG] AM FERRITIN [CHEM] AM HEPATIC FUNCTION PANEL,HFP [CHEM] AM PROCALCITONIN [REF] AM 09/07/20 05:11 BASIC METABOLIC PANEL,BMP [CHEM] AM CBC WITH AUTO DIFF [HEME] AM D-DIMER QUANTITATIVE [COAG] AM FERRITIN [CHEM] AM HEPATIC FUNCTION PANEL,HFP [CHEM] AM PROCALCITONIN [REF] AM - Plan Plan:: 60-year-old with a history of cad, copd Presented with increasing shortness of breath. Acute hypoxemic respiratory failure secondary to Covid 19 pneumonia Oxygen sats were high 80s in ER on RA Supplement oxygen as needed Covid 19 pneumonia Comorbidities: copd, cad symptoms started 08/22 with fever, cough, shortness of breath, headache, sore throat Positive covid 19 screen on 08/25 CXR abnormal 09/02 associated with hypoxemia 09/02 in er treat with Remdesivir: yes 09/02- LFT, Renal fx. Is good Dexamethasone 09/02- Plasma: yes 09/02- evaluate for concurrent bacterial infections Follow pro-calcitonin levels In the meantime hold Abx Ddimer is low - DVT prophylaxis SQ Lovenox daily COPD with acute exacerbation Start dexamethasone 09/02- Use inhalers continue dulera scheduled Albuterol as needed Hypertension uncontrolled Yesterday blood pressure medications were on hold resume today Lisinopril, hctz and metoprolol Coronary artery disease Continue aspirin, metoprolol
[2020-09-03] MEDS: Zolpidem 5 MG Tab PO PRN (20:58)
[2020-09-04 07:51] LABS: ANION GAP 11.5 mEq/L (7-13); CHLORIDE,CL 103 mmol/L (98-107); SODIUM,NA 137 mmol/L (136-145)
[2020-09-04] MEDS: Acetaminophen/HYDROcodone 325-10 MG Tab PO PRN ×2 (09:38→21:02)
[2020-09-04] MEDS: Enoxaparin 40 MG/0.4 ML Syringe SUBCUT SCH (09:38)
[2020-09-04] MEDS: guaiFENesin/Dextromethorphan 100-10 MG/5 ML Soln 5 ML Cup PO PRN ×2 (09:38→21:02)
[2020-09-04] MEDS: Multivitamins, Therapeutic with Minerals Tab PO SCH (09:39)
[2020-09-04] MEDS: Aspirin 81 MG Tab.EC PO SCH (09:39)
[2020-09-04] MEDS: Hydrochlorothiazide 25 MG Tab PO SCH (09:39)
[2020-09-04] MEDS: Dexamethasone 2 MG Tab PO SCH (09:39)
[2020-09-04] MEDS: Lisinopril 10 MG Tab PO SCH (09:39)
[2020-09-04] MEDS: Cholecalciferol (Vitamin D3) 25 MCG Tab PO SCH (09:39)
[2020-09-04] MEDS: Metoprolol Tartrate 25 MG Tab PO SCH (09:39)
[2020-09-04] MEDS: Formoterol/Mometasone 200-5 MCG 8.8 GM Inhaler IH SCH ×2 (09:40→18:16)
[2020-09-04] MEDS: Sodium Chloride 0.9% 10 ML Syringe FLUSH PRN ×2 (09:41→18:15)
--- NOTE | 2020-09-04 11:13 | PCM.PN ---
- General Info Date of Service: 09/04/20 Admission Dx/Problem (Free Text): Admission Diagnosis/Problem Admission Diagnosis/Problem Pneumonia Subjective Update: feeling well On oxygen supplement - only low flow shortness is improved since admission no abdominal pain or diarrhea Still has a sore throat but improving voice strength Functional Status: Reports: Pain Controlled, Tolerating Diet - Review of Systems General: Reports: Weakness Pulmonary: Reports: Shortness of Breath Cardiovascular: Denies: Chest Pain, Edema Gastrointestinal: Denies: Abdominal Pain - Patient Data Vitals - Most Recent: Last Vital Signs Temp 98.1 F 09/04/20 09:36 Pulse 79 09/04/20 09:39 Resp 20 09/04/20 09:36 BP 130/91 H 09/04/20 09:39 Pulse Ox 94 L 09/04/20 09:36 Weight - Most Recent: 177 lb 1.6 oz I&O - Last 24 Hours: Intake & Output 09/03/20 09/04/20 09/04/20 22:59 06:59 14:59 Intake Total 1710 660 Output Total 800 200 Balance 910 460 Lab Results Last 24 Hours: Laboratory Results - last 24 hr 09/03/20 09/04/20 09/04/20 Range/Units 06:58 06:29 06:29 WBC 8.4 (5.0-10.0) 10^3/uL RBC 4.89 (4.2-5.4) 10^6/uL Hgb 11.6 L (12.0-16.0) g/dL Hct 36.5 L (37.0-47.0) % MCV 74.6 L (80-100) fL MCH 23.7 L (27.0-34.0) pg MCHC 31.8 L (33.0-35.0) g/dL Plt Count 351 (150-450) 10^3/uL Neut % (Auto) 80.2 H (42.2-75.2) % Lymph % (Auto) 12.6 L (20.5-50.1) % [place] % (Auto) 7.0 (2-8) % Eos % (Auto) 0.1 L (1.0-3.0) % Baso % (Auto) 0.1 (0.0-1.0) % D-Dimer, Quantitative 535 H (0-400) ng/mL Sodium (136-145) mmol/L Potassium (3.5-5.1) mmol/L Chloride (98-107) mmol/L Carbon Dioxide (21-32) mmol/L Anion Gap (7-13) mEq/L BUN (7-18) mg/dL Creatinine (0.55-1.02) mg/dL Est Cr Clr Drug Dosing mL/min Estimated GFR (MDRD) Glucose (74-99) mg/dL Calcium (8.5-10.1) mg/dL Ferritin (8-252) mg/mL Total Bilirubin (0.2-1.0) mg/dL Direct Bilirubin (0.0-0.2) mg/dL Indirect Bilirubin AST (15-37) U/L ALT (14-59) U/L Alkaline Phosphatase (46-116) U/L Total Protein (6.4-8.2) g/dL Albumin (3.4-5.0) g/dL Globulin Albumin/Globulin Ratio Procalcitonin <0.05 (<0.10) ng/mL 09/04/20 09/04/20 Range/Units 06:29 06:29 WBC (5.0-10.0) 10^3/uL RBC (4.2-5.4) 10^6/uL Hgb (12.0-16.0) g/dL Hct (37.0-47.0) % MCV (80-100) fL MCH (27.0-34.0) pg MCHC (33.0-35.0) g/dL Plt Count (150-450) 10^3/uL Neut % (Auto) (42.2-75.2) % Lymph % (Auto) (20.5-50.1) % [place] % (Auto) (2-8) % Eos % (Auto) (1.0-3.0) % Baso % (Auto) (0.0-1.0) % D-Dimer, Quantitative (0-400) ng/mL Sodium 137 (136-145) mmol/L Potassium 3.5 (3.5-5.1) mmol/L Chloride 103 (98-107) mmol/L Carbon Dioxide 26 (21-32) mmol/L Anion Gap 11.5 (7-13) mEq/L BUN 13 (7-18) mg/dL Creatinine 0.72 (0.55-1.02) mg/dL Est Cr Clr Drug Dosing 58.19 mL/min Estimated GFR (MDRD) > 60 Glucose 99 (74-99) mg/dL Calcium 8.7 (8.5-10.1) mg/dL Ferritin 57 (8-252) mg/mL Total Bilirubin 0.3 (0.2-1.0) mg/dL Direct Bilirubin 0.1 (0.0-0.2) mg/dL Indirect Bilirubin 0.2 AST 25 (15-37) U/L ALT 28 (14-59) U/L Alkaline Phosphatase 97 (46-116) U/L Total Protein 7.5 (6.4-8.2) g/dL Albumin 2.9 L (3.4-5.0) g/dL Globulin 4.6 Albumin/Globulin Ratio 0.63 Procalcitonin (<0.10) ng/mL [place] Results Last 24 Hours: Microbiology 09/03/20 01:20 Gram Stain - Final Sputum - Expectorated Sputum Culture - Preliminary 09/02/20 15:29 Aerobic Blood Culture - Preliminary Blood - Venous - Iv Start NO GROWTH AFTER 1 DAY Anaerobic Blood Culture - Preliminary NO GROWTH AFTER 1 DAY Med Orders - Current: Current Medications Acetaminophen (Tylenol) 650 mg PO Q4H PRN PRN Reason: Fever Greater Than 101 Last Admin: 09/02/20 19:54 Dose: 650 mg Documented by: Hydrocodone Bitart/Acetaminophen ([place] 325-10 Mg) 1 tab PO Q6H PRN PRN Reason: moderate pain Last Admin: 09/04/20 09:38 Dose: 1 tab Documented by: Albuterol (Proventil Hfa) 0 gm INH Q4H PRN PRN Reason: Shortness of Breath Aspirin (Halfprin) 81 mg PO DAILY [facility] Last Admin: 09/04/20 09:39 Dose: 81 mg Documented by: Benzocaine/Menthol (Cepacol Sore Throat) 1 lozenge MUCMEM Q2H PRN PRN Reason: Sore Throat Last Admin: 09/03/20 20:56 Dose: 1 lozenge Documented by: Cholecalciferol (Vitamin D3) 25 mcg PO DAILY [facility] Last Admin: 09/04/20 09:39 Dose: 25 mcg Documented by: Dexamethasone (Dexamethasone) 6 mg PO DAILY [facility] Stop: 09/12/20 09:01 Last Admin: 09/04/20 09:39 Dose: 6 mg Documented by: Docusate Sodium (Colace) 100 mg PO BID PRN PRN Reason: Constipation Enoxaparin Sodium (Lovenox) 40 mg SUBCUT DAILY [facility] Last Admin: 09/04/20 09:38 Dose: 40 mg Documented by: Guaifenesin/Phenylephrine HCl (Robitussin Dm) 10 ml PO Q6H PRN PRN Reason: Cough Last Admin: 09/04/20 09:38 Dose: 10 ml Documented by: Hydrochlorothiazide (Hydrochlorothiazide) 12.5 mg PO DAILY [facility] Last Admin: 09/04/20 09:39 Dose: 12.5 mg Documented by: Hydroxyzine HCl (Atarax) 25 mg PO .QHS PRN PRN Reason: Sleep Last Admin: 09/03/20 00:16 Dose: 25 mg Documented by: Remdesivir 100 mg/ Sodium (Chloride) 230 mls @ 230 mls/hr IV Q24H [facility] Stop: 09/06/20 19:59 Last Admin: 09/03/20 19:32 Dose: 230 mls/hr Documented by: Ibuprofen (Motrin) 800 mg PO Q12HR PRN PRN Reason: Pain Lisinopril (Prinivil) 10 mg PO DAILY [facility] Last Admin: 09/04/20 09:39 Dose: 10 mg Documented by: Metoprolol Tartrate (Lopressor) 25 mg PO DAILY [facility] Last Admin: 09/04/20 09:39 Dose: 25 mg Documented by: Mometasone Furoate/Formoterol Fumar (Dulera 200-5 Mcg) 2 puff IH BIDRT [facility] Last Admin: 09/04/20 09:40 Dose: 2 dose Documented by: Morphine Sulfate (Morphine) 1 mg IVPUSH Q4H PRN PRN Reason: Pain (severe 7-10) Multivitamins/Minerals (Vitamins And Minerals) 1 tab PO WITHBREAKFAST [facility] Last Admin: 09/04/20 09:39 Dose: 1 tab Documented by: Ondansetron HCl (Zofran Odt) 4 mg PO Q6H PRN PRN Reason: nausea, able to take PO Ondansetron HCl (Zofran) 4 mg IVPUSH Q6H PRN PRN Reason: Nausea/Vomiting Sodium Chloride (Saline Flush) 10 ml FLUSH ASDIRECTED PRN PRN Reason: Keep Vein Open Last Admin: 09/04/20 09:41 Dose: 10 ml Documented by: Zolpidem Tartrate (Ambien) 5 mg PO BEDTIME PRN PRN Reason: Insomnia Last Admin: 09/03/20 20:58 Dose: 5 mg Documented by: Discontinued Medications Amlodipine Besylate (Norvasc) 5 mg PO ONETIME ONE Stop: 09/02/20 22:31 Last Admin: 09/02/20 22:31 Dose: 5 mg Documented by: Dexamethasone (Decadron) 6 mg IVPUSH ONETIME ONE Stop: 09/02/20 16:46 Last Admin: 09/02/20 17:00 Dose: 6 mg Documented by: Remdesivir 200 mg/ Sodium (Chloride) 210 mls @ 210 mls/hr IV ONETIME ONE Stop: 09/02/20 19:07 Last Infusion: 09/02/20 23:08 Dose: Infused Documented by: Sterile Water (Sterile Water For Injection) Confirm Administered Dose 40 mls @ as directed .ROUTE .STK-MED ONE Stop: 09/02/20 19:34 Last Admin: 09/02/20 19:54 Dose: Not Given Documented by: - Exam Quality Assessment: Supplemental Oxygen General: Alert, Oriented Lungs: Normal Respiratory Effort, Rhonchi Cardiovascular: Regular Rate, Regular Rhythm GI/Abdominal Exam: Normal Bowel Sounds, Soft Extremities: No Pedal Edema Sepsis Event Note - Evaluation Sepsis Screening Result: No Definite Risk - Focused Exam Vital Signs: Vital Signs Temp Pulse Pulse Resp BP BP Pulse Ox 09/04/20 09:39 79 130/91 H 09/04/20 09:36 98.1 F 79 20 130/91 H 94 L - Problem List & Annotations (1) CAD (coronary artery disease) SNOMED Code(s): 96469518 Code(s): I25.10 - ATHSCL HEART DISEASE OF [place] CORONARY ARTERY W/O ANG PCTRS Status: Acute Current Visit: Yes (2) HTN (hypertension) SNOMED Code(s): 59802660 Code(s): I10 - ESSENTIAL (PRIMARY) HYPERTENSION Status: Acute Current Visit: Yes (3) Anxiety SNOMED Code(s): 67425555 Code(s): F41.9 - ANXIETY DISORDER, UNSPECIFIED Status: Acute Current Visit: No (4) Pneumonia due to COVID-19 virus SNOMED Code(s): 055768089932209188 Code(s): U07.1 - COVID-19; J12.89 - OTHER VIRAL PNEUMONIA Status: Acute Current Visit: No - Problem List Review Problem List Initiated/Reviewed/Updated: Yes - My Orders Last 24 Hours: My Active Orders 09/03/20 19:00 Remdesivir (Eua) [Remdesivir (EUA)] 100 mg Sodium Chloride 0.9% [Normal Saline] 230 ml IV Q24H 09/03/20 20:47 Zolpidem [Ambien] 5 mg PO BEDTIME PRN 09/04/20 06:29 PROCALCITONIN [REF] AM 09/05/20 05:11 BASIC METABOLIC PANEL,BMP [CHEM] AM CBC WITH AUTO DIFF [HEME] AM D-DIMER QUANTITATIVE [COAG] AM FERRITIN [CHEM] AM HEPATIC FUNCTION PANEL,HFP [CHEM] AM PROCALCITONIN [REF] AM 09/06/20 05:11 BASIC METABOLIC PANEL,BMP [CHEM] AM CBC WITH AUTO DIFF [HEME] AM D-DIMER QUANTITATIVE [COAG] AM FERRITIN [CHEM] AM HEPATIC FUNCTION PANEL,HFP [CHEM] AM PROCALCITONIN [REF] AM 09/07/20 05:11 BASIC METABOLIC PANEL,BMP [CHEM] AM CBC WITH AUTO DIFF [HEME] AM D-DIMER QUANTITATIVE [COAG] AM FERRITIN [CHEM] AM HEPATIC FUNCTION PANEL,HFP [CHEM] AM PROCALCITONIN [REF] AM - Plan Plan:: 60-year-old with a history of cad, copd Presented with increasing shortness of breath. Acute hypoxemic respiratory failure secondary to Covid 19 pneumonia Oxygen sats were high 80s in ER on RA now improving taper oxygen as possible Covid 19 pneumonia Comorbidities: copd, cad symptoms started 08/22 with fever, cough, shortness of breath, headache, sore throat Positive covid 19 screen on 08/25 CXR abnormal 09/02 associated with hypoxemia 09/02 in er treat with Remdesivir: yes 09/02- LFT, Renal fx. Is good Dexamethasone 09/02- Plasma: yes 09/02- evaluate for concurrent bacterial infections pro-calcitonin levels: 09/03: low hold Abx Ddimer is minimally elevated - DVT prophylaxis SQ Lovenox daily COPD with acute exacerbation cont dexamethasone 09/02- Use inhalers continue dulera scheduled Albuterol as needed Hypertension better controlled cont Lisinopril, hctz and metoprolol Coronary artery disease Continue aspirin, metoprolol
[2020-09-04] MEDS ORDERED: REMDESIVIR 200 MG ONE (17:43)
[2020-09-04] MEDS: Zolpidem 5 MG Tab PO PRN (21:02)
[2020-09-04 22:26] VITALS: PULSE 80
[2020-09-05 07:20] LABS: ANION GAP 11.9 mEq/L (7-13); CHLORIDE,CL 105 mmol/L (98-107); SODIUM,NA 139 mmol/L (136-145)
[2020-09-05 08:35] VITALS: BP 132/73
[2020-09-05] MEDS: Lisinopril 10 MG Tab PO SCH (08:35)
[2020-09-05] MEDS: Acetaminophen/HYDROcodone 325-10 MG Tab PO PRN (08:36)
[2020-09-05] MEDS: Multivitamins, Therapeutic with Minerals Tab PO SCH (08:36)
[2020-09-05] MEDS: Hydrochlorothiazide 25 MG Tab PO SCH (08:36)
[2020-09-05] MEDS: Metoprolol Tartrate 25 MG Tab PO SCH (08:36)
[2020-09-05] MEDS: Aspirin 81 MG Tab.EC PO SCH (08:37)
[2020-09-05] MEDS: Formoterol/Mometasone 200-5 MCG 8.8 GM Inhaler IH SCH (08:37)
[2020-09-05] MEDS: Sodium Chloride 0.9% 10 ML Syringe FLUSH PRN (08:37)
[2020-09-05] MEDS: Enoxaparin 40 MG/0.4 ML Syringe SUBCUT SCH (08:37)
[2020-09-05] MEDS: Dexamethasone 2 MG Tab PO SCH (08:37)
[2020-09-05] MEDS: Cholecalciferol (Vitamin D3) 25 MCG Tab PO SCH (08:37)
--- NOTE | 2020-09-05 12:04 | PCM.DCSUM1 ---
Discharge Summary - Hospital Course Free Text/Narrative:: 60-year-old with a history of cad, copd Presented with increasing shortness of breath. Acute hypoxemic respiratory failure secondary to Covid 19 pneumonia Oxygen sats were high 80s in ER on RA now improved off oxygen Covid 19 pneumonia Comorbidities: copd, cad symptoms started 08/22 with fever, cough, shortness of breath, headache, sore throat Positive covid 19 screen on 08/25 CXR abnormal 09/02 associated with hypoxemia 09/02 in er treat with Remdesivir: yes 09/02- 09/05 Dexamethasone 09/02- Plasma: 09/02- evaluate for concurrent bacterial infections pro-calcitonin levels: 09/03: low hold Abx Ddimer is minimally elevated - DVT prophylaxis SQ Lovenox daily - cont asa at home COPD with acute exacerbation cont dexamethasone 09/02- for total 10 days Use inhalers continue dulera scheduled Albuterol as needed Hypertension controlled cont Lisinopril, hctz and metoprolol Coronary artery disease Continue aspirin, metoprolol Diagnosis: Stroke: No - Discharge Data Discharge Date: 09/05/20 Discharge Disposition: Home, Self-Care 01 Condition: Good - Referral to Home Health Primary Care Physician: Severino [facility] - Discharge Diagnosis/Problem(s) (1) CAD (coronary artery disease) SNOMED Code(s): 20786183 ICD Code: I25.10 - ATHSCL HEART DISEASE OF [place] CORONARY ARTERY W/O ANG PCTRS Status: Acute Current Visit: Yes (2) HTN (hypertension) SNOMED Code(s): 64160475 ICD Code: I10 - ESSENTIAL (PRIMARY) HYPERTENSION Status: Acute Current Visit: Yes (3) Anxiety SNOMED Code(s): 28206502 ICD Code: F41.9 - ANXIETY DISORDER, UNSPECIFIED Status: Acute Current Visit: No (4) Pneumonia due to COVID-19 virus SNOMED Code(s): 162464252949149191 ICD Code: U07.1 - COVID-19; J12.89 - OTHER VIRAL PNEUMONIA Status: Acute Current Visit: No - Patient Instructions Diet: Heart Healthy Diet Activity: As Tolerated - Discharge Plan *PRESCRIPTION DRUG MONITORING PROGRAM REVIEWED*: Not Applicable *COPY OF PRESCRIPTION DRUG MONITORING REPORT IN PATIENT JEZ: Not Applicable Prescriptions/Med Rec: dexAMETHasone [Dexamethasone] 6 mg PO DAILY #7 tablet Acetaminophen/HYDROcodone [[place] 325-10 MG] 1 tab PO Q6H PRN #7 tablet PRN Reason: moderate pain Dextromethorphan/guaiFENesin [Robitussin DM] 10 ml PO Q6H PRN #200 ml PRN Reason: Cough Cholecalciferol (Vitamin D3) [Vitamin D3] 25 mcg PO DAILY #10 tablet Multivitamins/Minerals [Vitamins and Minerals] 1 tab PO WITHBREAKFAST #30 tablet Home Medications: Home Meds Aspirin [Halfprin] 81 mg PO DAILY 05/31/15 [History] Ibuprofen [Motrin] 800 mg PO Q12HR PRN 05/31/15 [History] Lisinopril 10 mg PO DAILY 05/31/15 [History] Metoprolol Tartrate [Lopressor] 25 mg PO DAILY 05/31/15 [History] hydrOXYzine HCL [hydrOXYzine] 25 mg PO DAILY PRN 05/31/15 [History] hydroCHLOROthiazide [Hydrochlorothiazide] 12.5 mg PO DAILY 05/31/15 [History] Albuterol [Proventil HFA] 6.7 gm INH Q6H PRN 05/24/17 [History] Oxymetazoline [Afrin Original 0.05% Nasal [place]] 15 ml AKILA Q12HR PRN 05/24/17 [History] Acetaminophen/HYDROcodone [[place] 325-10 MG] 1 tab PO Q6H PRN #7 tablet 09/05/20 [Rx] Cholecalciferol (Vitamin D3) [Vitamin D3] 25 mcg PO DAILY #10 tablet 09/05/20 [Rx] Dextromethorphan/guaiFENesin [Robitussin DM] 10 ml PO Q6H PRN #200 ml 09/05/20 [Rx] Mometasone/Formoterol [Dulera 200-5 MCG] 2 puff IH BIDRT inhaler 09/05/20 [Rx] Multivitamins/Minerals [Vitamins and Minerals] 1 tab PO WITHBREAKFAST #30 tablet 09/05/20 [Rx] dexAMETHasone [Dexamethasone] 6 mg PO DAILY #7 tablet 09/05/20 [Rx] Oxygen Therapy Mode: Room Air Forms: ED Department Discharge Referrals: Moreno,Severino [Primary Care Provider] - - Discharge Summary/Plan Comment DC Time >30 min.: No - General Info Date of Service: 09/05/20 Admission Dx/Problem (Free Text: Admission Diagnosis/Problem Admission Diagnosis/Problem Pneumonia Subjective Update: feeling well off oxygen supplement shortness is improved since admission no abdominal pain or diarrhea Still has a sore throat but improving voice strength Functional Status: Reports: Tolerating Diet - Review of Systems General: Denies: Fever, Weakness Pulmonary: Denies: Shortness of Breath, Hemoptysis Gastrointestinal: Denies: Abdominal Pain - Patient Data Vitals - Most Recent: Last Vital Signs Temp 98.2 F 09/05/20 08:34 Pulse 80 09/05/20 08:36 Resp 18 09/05/20 08:34 BP 132/73 09/05/20 08:36 Pulse Ox 95 09/05/20 08:34 Weight - Most Recent: 177 lb 1.6 oz I&O - Last 24 hours: Intake & Output 09/04/20 09/05/20 09/05/20 22:59 06:59 14:59 Intake Total 750 Balance 750 Lab Results - Last 24 hrs: Laboratory Results - last 24 hr 09/05/20 09/05/20 09/05/20 Range/Units 06:25 06:25 06:25 WBC 6.9 (5.0-10.0) 10^3/uL RBC 4.92 (4.2-5.4) 10^6/uL Hgb 11.8 L (12.0-16.0) g/dL Hct 36.6 L (37.0-47.0) % MCV 74.4 L (80-100) fL MCH 24.0 L (27.0-34.0) pg MCHC 32.2 L (33.0-35.0) g/dL Plt Count 349 (150-450) 10^3/uL Neut % (Auto) 75.7 H (42.2-75.2) % Lymph % (Auto) 16.7 L (20.5-50.1) % [place] % (Auto) 7.4 (2-8) % Eos % (Auto) 0.1 L (1.0-3.0) % Baso % (Auto) 0.1 (0.0-1.0) % D-Dimer, Quantitative 254 (0-400) ng/mL Sodium 139 (136-145) mmol/L Potassium 3.9 (3.5-5.1) mmol/L Chloride 105 (98-107) mmol/L Carbon Dioxide 26 (21-32) mmol/L Anion Gap 11.9 (7-13) mEq/L BUN 14 (7-18) mg/dL Creatinine 0.64 (0.55-1.02) mg/dL Est Cr Clr Drug Dosing 65.47 mL/min Estimated GFR (MDRD) > 60 Glucose 99 (74-99) mg/dL Calcium 8.6 (8.5-10.1) mg/dL Ferritin (8-252) mg/mL Total Bilirubin 0.3 (0.2-1.0) mg/dL Direct Bilirubin 0.1 (0.0-0.2) mg/dL Indirect Bilirubin 0.2 AST 25 (15-37) U/L ALT 27 (14-59) U/L Alkaline Phosphatase 94 (46-116) U/L Total Protein 7.1 (6.4-8.2) g/dL Albumin 2.8 L (3.4-5.0) g/dL Globulin 4.3 Albumin/Globulin Ratio 0.65 09/05/20 Range/Units 06:25 WBC (5.0-10.0) 10^3/uL RBC (4.2-5.4) 10^6/uL Hgb (12.0-16.0) g/dL Hct (37.0-47.0) % MCV (80-100) fL MCH (27.0-34.0) pg MCHC (33.0-35.0) g/dL Plt Count (150-450) 10^3/uL Neut % (Auto) (42.2-75.2) % Lymph % (Auto) (20.5-50.1) % [place] % (Auto) (2-8) % Eos % (Auto) (1.0-3.0) % Baso % (Auto) (0.0-1.0) % D-Dimer, Quantitative (0-400) ng/mL Sodium (136-145) mmol/L Potassium (3.5-5.1) mmol/L Chloride (98-107) mmol/L Carbon Dioxide (21-32) mmol/L Anion Gap (7-13) mEq/L BUN (7-18) mg/dL Creatinine (0.55-1.02) mg/dL Est Cr Clr Drug Dosing mL/min Estimated GFR (MDRD) Glucose (74-99) mg/dL Calcium (8.5-10.1) mg/dL Ferritin 45 (8-252) mg/mL Total Bilirubin (0.2-1.0) mg/dL Direct Bilirubin (0.0-0.2) mg/dL Indirect Bilirubin AST (15-37) U/L ALT (14-59) U/L Alkaline Phosphatase (46-116) U/L Total Protein (6.4-8.2) g/dL Albumin (3.4-5.0) g/dL Globulin Albumin/Globulin Ratio NESTOR Results - Last 24 hrs: Microbiology 09/03/20 01:20 Gram Stain - Final Sputum - Expectorated Sputum Culture - Final Staphylococcus Aureus 09/02/20 15:29 Aerobic Blood Culture - Preliminary Blood - Venous - Iv Start NO GROWTH AFTER 2 DAYS Anaerobic Blood Culture - Preliminary NO GROWTH AFTER 2 DAYS Med Orders - Current: Current Medications Acetaminophen (Tylenol) 650 mg PO Q4H PRN PRN Reason: Fever Greater Than 101 Last Admin: 09/02/20 19:54 Dose: 650 mg Documented by: Hydrocodone Bitart/Acetaminophen ([place] 325-10 Mg) 1 tab PO Q6H PRN PRN Reason: moderate pain Last Admin: 09/05/20 08:36 Dose: 1 tab Documented by: Albuterol (Proventil Hfa) 0 gm INH Q4H PRN PRN Reason: Shortness of Breath Aspirin (Halfprin) 81 mg PO DAILY [facility] Last Admin: 09/05/20 08:37 Dose: 81 mg Documented by: Benzocaine/Menthol (Cepacol Sore Throat) 1 lozenge MUCMEM Q2H PRN PRN Reason: Sore Throat Last Admin: 09/03/20 20:56 Dose: 1 lozenge Documented by: Cholecalciferol (Vitamin D3) 25 mcg PO DAILY [facility] Last Admin: 09/05/20 08:37 Dose: 25 mcg Documented by: Dexamethasone (Dexamethasone) 6 mg PO DAILY [facility] Stop: 09/12/20 09:01 Last Admin: 09/05/20 08:37 Dose: 6 mg Documented by: Docusate Sodium (Colace) 100 mg PO BID PRN PRN Reason: Constipation Enoxaparin Sodium (Lovenox) 40 mg SUBCUT DAILY [facility] Last Admin: 09/05/20 08:37 Dose: 40 mg Documented by: Guaifenesin/Phenylephrine HCl (Robitussin Dm) 10 ml PO Q6H PRN PRN Reason: Cough Last Admin: 09/04/20 21:02 Dose: 10 ml Documented by: Hydrochlorothiazide (Hydrochlorothiazide) 12.5 mg PO DAILY [facility] Last Admin: 09/05/20 08:36 Dose: 12.5 mg Documented by: Hydroxyzine HCl (Atarax) 25 mg PO .QHS PRN PRN Reason: Sleep Last Admin: 09/03/20 00:16 Dose: 25 mg Documented by: Remdesivir 100 mg/ Sodium (Chloride) 230 mls @ 230 mls/hr IV Q24H [facility] Stop: 09/06/20 19:59 Last Admin: 09/04/20 18:15 Dose: 230 mls/hr Documented by: Ibuprofen (Motrin) 800 mg PO Q12HR PRN PRN Reason: Pain Lisinopril (Prinivil) 10 mg PO DAILY [facility] Last Admin: 09/05/20 08:35 Dose: 10 mg Documented by: Metoprolol Tartrate (Lopressor) 25 mg PO DAILY [facility] Last Admin: 09/05/20 08:36 Dose: 25 mg Documented by: Mometasone Furoate/Formoterol Fumar (Dulera 200-5 Mcg) 2 puff IH BIDRT [facility] Last Admin: 09/05/20 08:37 Dose: 2 puff Documented by: Morphine Sulfate (Morphine) 1 mg IVPUSH Q4H PRN PRN Reason: Pain (severe 7-10) Multivitamins/Minerals (Vitamins And Minerals) 1 tab PO WITHBREAKFAST [facility] Last Admin: 09/05/20 08:36 Dose: 1 tab Documented by: Ondansetron HCl (Zofran Odt) 4 mg PO Q6H PRN PRN Reason: nausea, able to take PO Ondansetron HCl (Zofran) 4 mg IVPUSH Q6H PRN PRN Reason: Nausea/Vomiting Sodium Chloride (Saline Flush) 10 ml FLUSH ASDIRECTED PRN PRN Reason: Keep Vein Open Last Admin: 09/05/20 08:37 Dose: 10 ml Documented by: Zolpidem Tartrate (Ambien) 5 mg PO BEDTIME PRN PRN Reason: Insomnia Last Admin: 09/04/20 21:02 Dose: 5 mg Documented by: Discontinued Medications Amlodipine Besylate (Norvasc) 5 mg PO ONETIME ONE Stop: 09/02/20 22:31 Last Admin: 09/02/20 22:31 Dose: 5 mg Documented by: Dexamethasone (Decadron) 6 mg IVPUSH ONETIME ONE Stop: 09/02/20 16:46 Last Admin: 09/02/20 17:00 Dose: 6 mg Documented by: Remdesivir 200 mg/ Sodium (Chloride) 210 mls @ 210 mls/hr IV ONETIME ONE Stop: 09/02/20 19:07 Last Infusion: 09/02/20 23:08 Dose: Infused Documented by: Sterile Water (Sterile Water For Injection) Confirm Administered Dose 40 mls @ as directed .ROUTE .STK-MED ONE Stop: 09/02/20 19:34 Last Admin: 09/02/20 19:54 Dose: Not Given Documented by: Remdesivir (Remdesivir (Eua)) Confirm Administered Dose 200 mls @ as directed .ROUTE .STK-MED ONE Stop: 09/04/20 17:44 Last Admin: 09/04/20 18:42 Dose: Not Given Documented by: - Exam Quality Assessment: Denies: Supplemental Oxygen General: Reports: Alert, Oriented Lungs: Reports: Normal Respiratory Effort. Denies: Rhonchi, Wheezing Cardiovascular: Reports: Regular Rate, Regular Rhythm GI/Abdominal Exam: Normal Bowel Sounds, Soft, Non-Tender Extremities: No Pedal Edema
[2020-09-05] MEDS ORDERED: FLU Vacc QS2020-21 36MOS UP/PF 60 MCG/0.5 ML Syringe IM ONE (14:00)
== END 2020-09-05 15:15 | disposition home or self-care (01) | DRG 177 ==
LOC: DL.ED 14:38 → DL.MS 17:26
PROVIDERS: ADMIT Internal Medicine; ATTEND Internal Medicine
PROC: 8E0ZXY6 Isolation (ICD-10-PCS; principal; 2020-09-02)
PROC: XW033E5 Introduction of Remdesivir Anti-infective into Peripheral Vein, Percutaneous Approach, New Technology Group 5 (ICD-10-PCS; principal; 2020-09-02)
PROC: 30233K1 Transfusion of Nonautologous Frozen Plasma into Peripheral Vein, Percutaneous Approach (ICD-10-PCS; principal; 2020-09-02)
DX: U07.1 COVID-19 (principal); J12.89 Other viral pneumonia; J96.01 Acute respiratory failure with hypoxia; J44.1 Chronic obstructive pulmonary disease with (acute) exacerbation; I25.10 Atherosclerotic heart disease of native coronary artery without angina pectoris; I10 Essential (primary) hypertension; F41.9 Anxiety disorder, unspecified; H54.7 Unspecified visual loss; G43.909 Migraine, unspecified, not intractable, without status migrainosus; F32.9 Major depressive disorder, single episode, unspecified; Z96.651 Presence of right artificial knee joint; Z79.82 Long term (current) use of aspirin; Z79.899 Other long term (current) drug therapy; I25.2 Old myocardial infarction; Z95.5 Presence of coronary angioplasty implant and graft; Z90.49 Acquired absence of other specified parts of digestive tract; Z98.890 Other specified postprocedural states; Z88.6 Allergy status to analgesic agent
CPT/HCPCS: 36415; 36430; 71045; 80048; 80053; 80076; 82728; 83605; 83735; 83880; 84100; 84145; 84484; 85025; 85379; 86140; 86900; 86901; 87040; 87070; 87077; 87186; 87205; 90686; 93005; 96374; 99285-25; A9270-GY; G0008; J1100; J1650; J7050; J8540; P9017